=== PATIENT | female | born 1935 | race Caucasian/White ===

== ENCOUNTER 2016-07-28 12:48 | Inpatient (IN) | payer MEDICARE, OTHER ==
[~2016-07-28] VITALS: Ht 152.4 cm; Wt 65.0 kg
[~2016-07-28 12:48] MED LIST: ALBU18HF INHALATION; ALBU2.5V3 NEB; BECL8.7A INH; DOXY100T20 PO; HYDR-3498 PO; LISI10TA2 PO; PRED20TA PO
[2016-07-28] MEDS ORDERED: morphine 4 MG/ML VIAL IV STA (12:54)
[2016-07-28] MEDS ORDERED: ONDANSETRON 4 MG INJ IV STA (12:54)
[2016-07-28 13:24] LABS: ADD SCAN DIFF NO
[2016-07-28 13:26] LABS: ABNORMAL IP MESSAGE 1; BASOPHILS % 0.3 % (0.0-2.0); EOSINOPHILS # 0.1 10^3/ul (0.0-0.5); EOSINOPHILS % 0.7 % (0.0-7.0); HEMATOCRIT 37.9 % (37.0-47.0); HEMOGLOBIN 11.8 g/dl (12.0-16.0); LYMPHOCYTES # 5.7 10^3/ul (0.8-2.9); LYMPHOCYTES % 56.4 % (15.0-51.0); MEAN CORPUSCULAR HEMOGLOBIN 27.8 pg (29.0-33.0); MEAN CORPUSCULAR HGB CONC 31.1 g/dl (32.0-37.0); MEAN CORPUSCULAR VOLUME 89.4 fl (82.0-101.0); MEAN PLATELET VOLUME 10.6 fl (7.4-10.4); MONOCYTE # 0.7 10^3/ul (0.3-0.9); MONOCYTES % 6.8 % (0.0-11.0); NEUTROPHIL # 3.6 10^3/ul (1.6-7.5); NEUTROPHILS % 35.4 % (39.0-77.0); PLATELET COUNT 197 10^3/UL (140-415); RED BLOOD COUNT 4.24 10^6/ul (4.20-5.40); RED CELL DISTRIBUTION WIDTH 12.2 % (11.5-14.5); WHITE BLOOD COUNT 10.2 10^3/ul (4.8-10.8)
[2016-07-28 13:41] LABS: INR 0.94; PROTIME 12.6 Sec (12.2-14.2)
[2016-07-28 13:42] LABS: PARTIAL THROMBOPLASTIN TIME 27.2 Sec (25.0-35.0)
[2016-07-28 13:43] LABS: ANION GAP 8 (8-16); BLOOD UREA NITROGEN 14 mg/dl (7-20); CARBON DIOXIDE 26 mmol/L (21-31); CHLORIDE 107 mmol/L (97-110); CREATININE 0.62 mg/dl (0.44-1.00); GLUCOSE 98 mg/dl (70-220); SODIUM 137 mmol/L (135-144)
[2016-07-28 13:55] LABS: TROPONIN-I < 0.012 ng/ml (0.00-0.12)
--- NOTE | 2016-07-28 14:01 | RADRPT ---
PROCEDURE: XR Left Hip. CLINICAL INDICATION: Trauma. Left hip pain. TECHNIQUE: Two views. Frontal and lateral. COMPARISON: No prior studies are available for comparison. FINDINGS: There is an acute comminuted intertrochanteric fracture of the left hip with angulation apex lateral . There is no other fracture and there is no dislocation. The soft tissues are normal. Articular surfaces are intact. There is no lytic or blastic lesion. There is no radiopaque foreign body. IMPRESSION: 1. Acute comminuted intertrochanteric fracture of the left hip with angulation apex lateral. RPTAT: QQ .Braulio Carrillo MD, MD Date Time Electronically viewed and signed by .Braulio Carrillo MD, MD on 07/28/2016 14:00 .R/
[2016-07-28] MEDS ORDERED: DONE5TAB46 PO (14:28)
[2016-07-28] MEDS ORDERED: CHOL100062 PO (14:29)
[2016-07-28] MEDS ORDERED: CALC500T91 PO (14:29)
--- NOTE | 2016-07-28 14:47 | RADRPT ---
PROCEDURE: XR Chest. CLINICAL INDICATION: Preoperative. Chest pain. TECHNIQUE: Single frontal view. COMPARISON: 09/23/2015. FINDINGS: The lungs are clear. The heart size is normal. There is calcification in the aorta consistent with atherosclerosis. There is no pleural effusion. There is no pneumothorax. IMPRESSION: 1. Clear lungs. 2. Atherosclerosis. RPTAT: QQ .Braulio Carrillo MD, MD Date Time Electronically viewed and signed by .Braulio Carrillo MD, on 07/28/2016 14:46 .R/
[2016-07-28] MEDS ORDERED: ONDANSETRON 4 MG INJ IV PRN (15:00)
[2016-07-28] MEDS ORDERED: ACETAMINOPHEN 325 MG TAB PO PRN ×2 (15:00→17:30)
[2016-07-28] MEDS: SOD CHLORIDE 0.9% 1,000 ML IV SCH (15:08)
--- NOTE | 2016-07-28 15:45 | ERA ---
ER Documentation Chief Complaint Date/Time DATE: 07/28/16 TIME: 15:44 Chief Complaint GROUND LEVEL FALL WITH LEFT HIP PAIN POSITIVE DEFORMITY NOTED. SHORTENING HPI This is an 81-year-old female presents to the emergency room for evaluation of left-sided hip pain after a ground-level fall. This patient tripped today and fell at home. She denies any head injury loss of consciousness. She states that she was unable to ambulate and is having pain in the left hip which is worse with any movement. She denies any numbness or tingling in the foot and came to the ER by ambulance for evaluation of her symptoms ROS All systems reviewed and are negative except as per history of present illness. Medications Home Meds Active Scripts Beclomethasone Dip* (Qvar 40*) 7.3 Gm Inha, 2 PUFF INH BID, #1 INHALER Prov:JAISON STEWARD 09/23/15 Reported Medications Cholecalciferol* (Vitamin D3*) 1,000 Unit Tablet, 1000 UNIT PO DAILY, TAB 07/28/16 Calcium Carbonate ([id number]) 500 Mg Tablet, 500 MG PO BID, TAB 07/28/16 Donepezil* (Aricept*) 5 Mg Tablet, 5 MG PO DAILY, TAB 07/28/16 Lisinopril* (Lisinopril*) 10 Mg Tablet, 10 MG PO DAILY, #30 TAB 09/19/15 Albuterol Sulfate* (Albuterol Sulfate* Neb) 0.083%-3 Ml Neb, 2.5 MG NEB Q4H Y for WHEEZING AND SOB, #30 VIAL 09/19/15 Discontinued Scripts Hydrocodone Bit-Acetaminophen* ([place]*) 5-325 Mg Tab, 1 TAB PO Q6 Y for PAIN, # 20 TAB Prov:JAISON STEWARD 09/23/15 Doxycycline Hyclate* (Doxycycline Hyclate*) 100 Mg Tablet.dr, 100 MG PO BID for 14 Days, TAB Prov:FIDEL MARQUEZ DO 09/19/15 Prednisone* (Prednisone*) 20 Mg Tab, 40 MG PO DAILY for 3 Days, TAB Prov:FIDEL MARQUEZ DO 09/19/15 Albuterol Sulfate* (Ventolin HFA*) 18 Gm Hfa.aer.ad, 2 PUFF INHALATION Q4H, #1 INHALER Prov:FIDEL MARQUEZ DO 09/19/15 Albuterol Sulfate* (Albuterol Sulfate* Neb) 0.083%-3 Ml Neb, 2.5 MG NEB Q4H, # 30 VIAL Prov:FIDEL MARQUEZ DO 09/19/15 Allergies Allergies: Coded Allergies: No Known Drug Allergies (Verified Allergy, Mild, 09/23/15) PMhx/Soc History of Surgery: No Anesthesia Reaction: No Hx Neurological Disorder: No Hx Respiratory Disorders: Yes (c.bronchitis , ASTHMA ) Hx Cardiac Disorders: Yes (htn) Hx Psychiatric Problems: No Hx Miscellaneous Medical Probl: No Hx Alcohol Use: No Hx Substance Use: No Hx Tobacco Use: No Smoking Status: Never smoker Physical Exam Vitals Vital Signs Date Time Temp Pulse Resp B/P Pulse Ox O2 Delivery O2 Flow Rate FiO2 07/28/16 12:53 98.0 86 20 142/86 98 Physical Exam INITIAL VITAL SIGNS: Reviewed by me GENERAL: The patient is frail-appearing elderly female, mild distress HEENT: Pupils equal, round, and reactive to light. EOMI. There is no scleral icterus. NECK: C-spine is soft and supple, there is no meningismus. There is no cervical lymphadenopathy. LUNGS: Clear to auscultation bilaterally. There are no rales, wheezes or rhonchi. HEART: Regular rate and rhythm, no murmurs, clicks, rubs or gallops. ABDOMEN: Soft, non-tender, non-distended. There are bowel sounds in all four quadrants. No rebound or guarding. EXTREMITIES: Left lower extremity external rotation, extreme tenderness to palpation of the anterior superior iliac spine or with any movement of the left hip joint, there is no peripheral cyanosis or edema. No focal swelling or erythema. NEUROLOGICAL: The patient moves all four extremities with 5/5 strength. Cranial nerves II - XII are intact. Normal gait. Alert and oriented SKIN: There is no apparent rash or petechiae. HEME/LYMPHATIC: There is no evidence of excessive bruising or lymphedema. PSYCHIATRIC: The patient does not appear anxious or depressed. Result Diagram: 07/28/16 1320 07/28/16 1320 Results 24 hrs Laboratory Tests Test 07/28/16 13:20 White Blood Count 10.210^3/ul Red Blood Count 4.2410^6/ul Hemoglobin 11.8g/dl Hematocrit 37.9% Mean Corpuscular Volume 89.4fl Mean Corpuscular Hemoglobin 27.8pg Mean Corpuscular Hemoglobin Concent 31.1g/dl Red Cell Distribution Width 12.2% Platelet Count 45058^3/UL Mean Platelet Volume 10.6fl Neutrophils % 35.4% Lymphocytes % 56.4% Monocytes % 6.8% Eosinophils % 0.7% Basophils % 0.3% Nucleated Red Blood Cells % 0.0/100WBC Neutrophils # 3.610^3/ul Lymphocytes # 5.710^3/ul Monocytes # 0.710^3/ul Eosinophils # 0.110^3/ul Basophils # 0.010^3/ul Nucleated Red Blood Cells # 0.010^3/ul Prothrombin Time 12.6Sec Prothrombin Time Ratio 1.0 INR International Normalized Ratio 0.94 Activated Partial Thromboplast Time 27.2Sec Sodium Level 137mmol/L Potassium Level 4.0mmol/L Chloride Level 107mmol/L Carbon Dioxide Level 26mmol/L Anion Gap 8 Blood Urea Nitrogen 14mg/dl Creatinine 0.62mg/dl Glucose Level 98mg/dl Calcium Level 9.0mg/dl Troponin I < 0.012ng/ml Current Medications Medications (Trade) Dose Ordered Sig/Jayjay Route PRN Reason Start Time Stop Time Status Last Admin Dose Admin Morphine Sulfate (morphine) 4 mg ONCE STAT IV 07/28/16 12:54 07/28/16 12:56 DC 07/28/16 13:10 Ondansetron HCl 4 mg 4 mg ONCE STAT IV 07/28/16 12:54 07/28/16 12:56 DC 07/28/16 13:10 Sodium Chloride (NS) 1,000 ml @ 80 mls/hr [id number] IV 07/28/16 14:59 07/29/16 03:28 07/28/16 15:08 Ondansetron HCl (Zofran Inj) 4 mg BRIDGE ORDER PRN IV NAUSEA AND/OR VOMITING 07/28/16 15:00 07/29/16 14:59 Acetaminophen (Tylenol Tab) 650 mg ER BRIDGE PRN PO MILD PAIN/FEVER 07/28/16 15:00 07/29/16 14:59 Procedures/MDM Chest X-ray 1V Interpreted by me: Soft Tissue: No acute abnormalities Bones: No acute abnormalities Mediastinum/Cardiac Silhouette/Lungs: [No acute abnormalities] EKG: Rate/Rhythm: [Normal Sinus Rhythm] QRS, ST, T-waves: [No changes consistent w/ acute ischemia] Impression: [No evidence of ischemia or arrhythmia] X-ray Hip 2V Interpreted by me: Bones: Intertrochanteric fracture left Joints: [No dislocation] Foreign body: [None] This 81-year-old female presents to the emergency room for evaluation of left hip pain after ground-level fall. She did have external rotation of her left lower extremity and painful range of motion. The patient was given morphine in the ER with resolution of her pain. X-ray did confirm my suspicion of acute hip fracture. The patient will be admitted at this time. I contacted her orthopedic surgeon on-call, Dr. Kelley who agrees to evaluate this patient. [facility] under the care of her panel physician, Dr. Bean. For acute left intertrochanteric fracture Departure Diagnosis: Primary Impression: Fracture, intertrochanteric, left femur Additional Impression: Fall from ground level Condition: Stable PRINCESS COPE DO July 28, 2016 15:45
[2016-07-28] MEDS ORDERED: ALBUTEROL 0.083% (NEB) 2.5 MG/3 ML AMP NEB PRN (16:00)
--- NOTE | 2016-07-28 16:12 | HP ---
Date/Time of Note Date/Time of Note DATE: 07/28/16 TIME: 16:03 Assessment/Plan VTE Prophylaxis VTE Prophylaxis Intervention: SCD's Lines/Catheters IV [facility] Saline Lock Assessment/Plan Chief Complaint/Hosp Course Impression and plan 1. Left hip fracture. Patient did have a mechanical fall after tripping on step. No reports of syncope or loss of consciousness. imaging of left hip that did show acute comminuted intertrochanteric fracture with angulation apex lateral. Surgical consult to follow. Provide with analgesics for now. We will follow-up on echocardiogram preop 2. Essential hypertension. Continue antihypertensives and adjust needed 3. Alzheimer's disease. Patient to be resumed on her Alzheimer's medication 4. History of COPD. No active bronchospasm. Will provide with bronchodilators as needed Admission process 40 minutes Of note patient did report that she will not consent to any surgical intervention until her arrives in disease July 29, 2016). We will follow -up with patient decision. Discussed plan of care with Dr. Bean Problems: HPI/ROS Admit Date/Time Admit Date/Time Hx of Present Illness This is an 81-year-old female with history of Alzheimer's disease, hypertension , COPD, who came to [facility] due to mechanical fall resulting in a left hip fracture. According to the patient she was inside of her house when she had tripped on 1 of the steps inside and subsequently fell on her left side. She denied any head trauma or any loss of consciousness prior to this fall. No other associated symptoms or chest pain or shortness of breath. She was unable to ambulate and as such is brought to [facility] for further evaluation. Upon examination she did have a hip x-ray on the left side that did show an acute comminuted intertrochanteric fracture of the left hip with angulation apex lateral. Her chest x-ray of note was noted to have clear lungs but atherosclerosis was seen. Vital signs otherwise stable and nothing remarkable seen on BMP. She was slightly noted to be anemic hypochromic microcytic. She remains alert and oriented. Reports only minimal pain on left hip. We will evaluate her for the aformentiond issues ROS 12 point review of systems obtained and entirely negative except that mentioned in the history of present illness PMH/Family/Social Past Medical History Medical/surgical history Alzheimer's disease, hypertension, COPD Family History Significant Family History: no pertinent family hx Social History Alcohol Use: none Smoking Status: Never smoker Drug Use: none Exam/Review of Systems Vital Signs Vitals Vital Signs Date Time Temp Pulse Resp B/P Pulse Ox O2 Delivery O2 Flow Rate FiO2 07/28/16 12:53 98.0 86 20 142/86 98 Exam Constitutional: alert, oriented Psych: no complaints Neck: supple, No jvd Respiratory: clear to auscultation, normal air movement Cardiovascular: regular rate and rhythm Gastrointestinal: non-tender, soft Musculoskeletal: other (Noted with left hip fracture. No obvious ecchymosis or swelling noted) Neurological: nl speech, other (Slightly forgetful) Labs Result Diagram: 07/28/16 1320 07/28/16 1320 Medications Medications Current Medications Sodium Chloride (NS) 1,000 ml @ 80 mls/hr [id number] IV Last administered on 07/28t 15:08; Admin Dose 80 MLS/HR; Start 07/28/16 at 14:59; Stop 07/29/16 at 03: 28 Albuterol (Proventil 0.083% (Neb)) 2.5 mg Q4H PRN NEB WHEEZING AND SOB; Start 07/28/16 at 16:00; Status UNV Calcium Carbonate (Oyster Shell Calcium) 0.5 gm BID PO ; Start 07/28/16 at 21:00 ; Status UNV Cholecalciferol (Vitamin D) 1,000 unit DAILY PO ; Start 07/29/16 at 09:00; Status UNV Donepezil HCl (Aricept) 5 mg DAILY PO ; Start 07/29/16 at 09:00; Status UNV Lisinopril (Zestril) 10 mg DAILY PO ; Start 07/29/16 at 09:00; Status UNV Miscellaneous Information 2 puff BID INH ; Start 07/28/16 at 21:00; Status UNV FLAVIO FAN July 28, 2016 16:12
[2016-07-28 16:45] VITALS: BP 142/65; PULSE 86; RESP 16
[2016-07-28] MEDS: morphine 2 MG INJ IV PRN ×2 (17:29→21:33)
[2016-07-28] MEDS ORDERED: morphine 2 MG INJ IV PRN (17:30)
[2016-07-28 19:25] LABS: CREATINE KINASE 65 IU/L (23-200)
[2016-07-28 19:35] LABS: CK-MB 0.63 ng/ml (0.0-2.4)
[2016-07-28 19:48] LABS: TROPONIN-I < 0.012 ng/ml (0.00-0.12)
[2016-07-28 20:44] VITALS: BP 143/66; RESP 19
[2016-07-28] MEDS: CALCIUM CARBONATE 1.25 GM TAB PO SCH (20:49)
[2016-07-28] MEDS: MOMETASONE 0.24 GM INHALER INH SCH (20:50)
[2016-07-28] MEDS: HEPARIN 5,000 UNIT/0.5 ML VIAL SC SCH (20:59)
[2016-07-28 22:19] VITALS: PULSE 71; RESP 18
[2016-07-29] MEDS: morphine 2 MG INJ IV PRN ×5 (01:27→20:44)
[2016-07-29 01:29] LABS: CREATINE KINASE 66 IU/L (23-200)
[2016-07-29 01:42] LABS: CK-MB 0.48 ng/ml (0.0-2.4)
[2016-07-29 01:46] LABS: TROPONIN-I < 0.012 ng/ml (0.00-0.12)
[2016-07-29] MEDS: SOD CHLORIDE 0.9% 1,000 ML IV SCH ×4 (03:09→22:23)
[2016-07-29 07:00] VITALS: BP 144/63; RESP 20
[2016-07-29] MEDS: HYDROCODONE/APAP (5/325) TAB PO PRN ×2 (08:16→14:29)
[2016-07-29] MEDS: DONEPEZIL 5 MG TAB PO SCH ×2 (09:00→11:33)
[2016-07-29] MEDS: LISINOPRIL 10 MG TAB PO SCH ×2 (09:00→11:34)
[2016-07-29] MEDS: CALCIUM CARBONATE 1.25 GM TAB PO SCH ×3 (09:00→20:51)
[2016-07-29] MEDS: MOMETASONE 0.24 GM INHALER INH SCH ×2 (09:48→21:00)
[2016-07-29] MEDS: HEPARIN 5,000 UNIT/0.5 ML VIAL SC SCH ×2 (11:34→20:58)
[2016-07-29] MEDS: CHOLECALCIFEROL 1,000 UNIT TAB PO SCH (11:35)
--- NOTE | 2016-07-29 13:09 | RADRPT ---
Echocardiogram Report Patient Name: MERI ELAM Gender: Female Date: 1935 Study Date: 29-Jul-2016 Library Science Instructor: Jer Latham [facility] Location: [facility] Ref. Physician: FLAVIO FAN Quality: Technically Difficult Study Procedures: Transthoracic echocardiogram with complete 2D, M-Mode, and doppler examination. Indications: Evaluate Left Ventricular function. Pre-op. 2D/M Mode Doppler Measurement Value Normal Ranges Measurement Value Normal Ranges LVIDd 2D 4.2 3.5 - 5.6 cm AV Peak Zeke 1.7 m/sec LVIDs 2D 2.8 2.1 - 4.1 cm AV Peak PG 12.0 mmHg FS 2D 34.6 % AI Peak PG 45.0 mmHg LVPWd 2D 0.9 0.6 - 1.1 cm AI Peak Zeke 3.4 m/sec IVSd 2D 1.0 0.6 - 1.1 cm AI PHT 426.0 msec IVS/LVPW 2D 1.1 LVOT Peak Zeke 1.2 m/sec AoR Diam 2D 3.0 2.0 - 3.7 cm LVOT Peak PG 5.0 mmHg LA/Ao 2D 1 0 - 1 MV E Peak Zeke 0.5 m/sec EDV 2D 75.2 cm3 MV A Peak Zeke 0.8 m/sec ESV 2D 21.0 cm3 MV E/A 0.6 LA Dimen 2D 3.7 2.3 - 4.0 cm MV Decel Time 190 msec MV E/A 0.6 TR Peak Zeke 3.1 m/sec TR Peak PG 38.0 mmHg RVSP 41.0 mmHg Findings Left Ventricle: Hyperdynamic left ventricular systolic function. Normal left ventricular cavity size. Normal left ventricular wall thickness. Ejection fraction is visually estimated at 70 %. Tissue Doppler/Mitral Doppler indices are consistent with impaired relaxation (Stage I diastolic dysfunction). Right Ventricle: Normal right ventricular size. Normal right ventricular systolic function. Left Atrium: The left atrium is normal in size. Right Atrium: The right atrium is normal in size. Mitral Valve: Normal appearance and function of the mitral valve with trace physiologic regurgitation. Aortic Valve: No hemodynamically significant aortic stenosis by doppler. Aortic cusps appear mildly calcified. Trace aortic valve regurgitation. Tricuspid Valve: Tricuspid valve not well visualized. Estimated peak PA systolic pressure 41 mmHg. There is trace tricuspid regurgitation. Pulmonic Valve: Normal pulmonic valve appearance. Pericardium: Normal pericardium with no significant pericardial effusion. Aorta: Normal aortic root. IVC: Normal size and normal respiratory collapse consistent with normal right atrial pressure. Conclusions 1.Hyperdynamic left ventricular systolic function. Normal left ventricular cavity size. Normal left ventricular wall thickness. Ejection fraction is visually estimated at 70 %. Tissue Doppler/Mitral Doppler indices are consistent with impaired relaxation (Stage I diastolic dysfunction). 2.Normal right ventricular size. Normal right ventricular systolic function. 3.The left atrium is normal in size. 4.The right atrium is normal in size. 5.Estimated peak PA systolic pressure 41 mmHg. There is trace tricuspid regurgitation. 6.No significant valvular stenosis or regurgitation seen. 7.Normal pericardium with no significant pericardial effusion. Electronically Signed By: Aaron Blount 29-Jul-2016 13:07:36 -0700 Patient Name: MERI ELAM Study Date: 29-Jul-2016 [id number]
--- NOTE | 2016-07-29 15:19 | PN ---
Date/Time of Note Date/Time of Note DATE: 07/29/16 TIME: 15:17 Assessment/Plan VTE Prophylaxis VTE Prophylaxis Intervention: heparin Lines/Catheters IV Catheter Type (from Nrs): Peripheral IV Urinary Cath still in place: Yes Reason Cath still needed: other (indicate) (monitor I&O) Assessment/Plan Chief Complaint/Hosp Course Impression and plan 1. Left hip fracture. Patient did have a mechanical fall after tripping on step. No reports of syncope or loss of consciousness. imaging of left hip that did show acute comminuted intertrochanteric fracture with angulation apex lateral. Continue with analgesics. Awaiting surgical consultation input 2. Essential hypertension. Continue antihypertensives and adjust needed 3. Alzheimer's disease. Patient to be resumed on her Alzheimer's medication 4. History of COPD. No active bronchospasm. Will provide with bronchodilators as needed Disposition and plan: Continue with analgesics. Patient is mild to moderate risk for surgical intervention however the benefits of orthopedic surgery make it reasonable to proceed. Tentative plan for surgical intervention per orthopedic consult. Will follow up. Discussed plan of care with Dr. Bean Problems: Subjective 24 Hr Interval Summary Free Text/Dictation No apparent distress at this time. Comfortable at Exam/Review of Systems Vital Signs Vitals Vital Signs Date Time Temp Pulse Resp B/P Pulse Ox O2 Delivery O2 Flow Rate FiO2 07/29/16 08:00 Nasal Cannula 2.0 07/29/16 07:00 98.3 81 20 144/63 91 Intake and Output 07/28/16 07/28/16 07/29/16 15:00 23:00 07:00 Intake Total 160 ml 1080 ml Output Total 200 ml 250 ml Balance -40 ml 830 ml Exam Constitutional: alert, oriented Neck: No jvd Respiratory: clear to auscultation, normal air movement Cardiovascular: regular rate and rhythm Gastrointestinal: non-tender, soft Musculoskeletal: other (Noted with left hip fracture) Neurological: nl mental status, nl speech Skin: nl turgor Results Result Diagram: 07/28/16 1320 07/28/16 1320 Results 24 hrs Laboratory Tests Test 07/28/16 19:00 07/29/16 01:00 Creatine Kinase 65 66 Creatine Kinase Index 1.0 0.7 Creatinine Kinase MB (Mass) 0.63 0.48 Troponin I < 0.012 < 0.012 Medications Medications Current Medications Calcium Carbonate (Oyster Shell Calcium) 1.25 gm BID PO Last administered on 11:33; Admin Dose 1.25 GM; Start 07/28/16 at 21:00 Cholecalciferol (Vitamin D) 1,000 unit DAILY PO Last administered on 07/29/16 11:35; Admin Dose 1,000 UNIT; Start 07/29/16 at 09:00 Donepezil HCl (Aricept) 5 mg DAILY PO Last administered on 07/29/16 11:33; Admin Dose 5 MG; Start 07/29/16 at 09:00 Lisinopril (Zestril) 10 mg DAILY PO Last administered on 07/29/16 11:34; Admin Dose 10 MG; Start 07/29/16 at 09:00 Mometasone Furoate (Asmanex) 1 puff BID INH Last administered on 07/29/16 09: 48; Admin Dose 1 PUFF; Start 07/28/16 at 21:00 Heparin Sodium (Porcine) (Heparin (5000 Units/0.5 ml)) 5,000 unit BID SC Last administered on 07/29/16 11:34; Admin Dose 5,000 UNIT; Start 07/28/16 at 21:00 Acetaminophen/ Hydrocodone Bitart ([place] (5/325)) 1 tab Q6H PRN PO MILD PAIN LEVEL 1-3 Last administered on 07/29/16 14:29; Admin Dose 1 TAB; Start at 17:30 Acetaminophen (Tylenol Tab) 650 mg Q6H PRN PO PAIN AND OR ELEVATED TEMP; Start 07/28/16 at 17:30 Morphine Sulfate 2 mg 2 mg Q4H PRN IV PAIN Last administered on 07/29/16 09:51 ; Admin Dose 2 MG; Start 07/28/16 at 17:00 Sodium Chloride (NS) 1,000 ml @ 100 mls/hr Q10H IV Last administered on 14:26; Admin Dose 100 MLS/HR; Start 07/29/16 at 06:30; Stop 07/30/16 at 06: 30 FLAVIO FAN July 29, 2016 15:19
--- NOTE | 2016-07-29 16:03 | CONS ---
DATE OF ADMISSION: 07/28/2016 DATE OF CONSULTATION: 07/29/2016 TYPE OF CONSULTATION: Orthopedic Surgical HISTORY OF PRESENT ILLNESS: The patient is an 81-year-old female who was admitted on 07/28/2016, wh en she came to the emergency room complaining of painful swelling and limit of motion involving her left hip. She obviously had a trip and fall sustaining a ground-level fall on the day of her admiss ion. Denies any head injuries or chest pain or unconsciousness. She is known to have hypertension, COPD and dementia. PHYSICAL EXAMINATION: My examination revealed an 81-year-old female who was not in any acute distre ss. There was obvious swelling and tenderness and painful limit of motion involving her left hip. There was shortening and abnormal external rotation of the left lower extremity. There were no sign s of acute neurovascular compromise involving the left lower extremity. DIAGNOSTIC STUDIES: X-rays of the left hip revealed a rather comminuted intertrochanteric fracture which seems to be very unstable with fractured greater trochanter and lesser trochanter. TREATMENT PLAN: To carry out open reduction and internal fixation utilizing [facility] system and as soon as she can be medically cleared for surgery. Dictated By: BURKE BERMAN/MARLENE Conf#: [id number] DID#: [id number]
[2016-07-29 19:00] VITALS: BP 135/67; RESP 18
[2016-07-30] MEDS: HYDROCODONE/APAP (5/325) TAB PO PRN ×2 (00:02→07:23)
[2016-07-30] MEDS: morphine 2 MG INJ IV PRN ×5 (05:23→22:05)
[2016-07-30 07:32] VITALS: BP 159/71; RESP 19
[2016-07-30] MEDS: DONEPEZIL 5 MG TAB PO SCH (08:25)
[2016-07-30] MEDS: LISINOPRIL 10 MG TAB PO SCH (08:26)
[2016-07-30] MEDS: MOMETASONE 0.24 GM INHALER INH SCH ×2 (08:26→20:29)
[2016-07-30] MEDS: HEPARIN 5,000 UNIT/0.5 ML VIAL SC SCH (08:29)
[2016-07-30] MEDS: CHOLECALCIFEROL 1,000 UNIT TAB PO SCH (09:09)
[2016-07-30] MEDS: CALCIUM CARBONATE 1.25 GM TAB PO SCH ×2 (09:09→20:29)
--- NOTE | 2016-07-30 14:44 | PN ---
Date/Time of Note Date/Time of Note DATE: 07/30/16 TIME: 14:41 Assessment/Plan VTE Prophylaxis VTE Prophylaxis Intervention: heparin Lines/Catheters IV Catheter Type (from Nrs): Peripheral IV Urinary Cath still in place: Yes Reason Cath still needed: other (indicate) (monitor I&O) Assessment/Plan Chief Complaint/Hosp Course Impression and plan 1. Left hip fracture. Patient did have a mechanical fall after tripping on step. No reports of syncope or loss of consciousness. imaging of left hip that did show acute comminuted intertrochanteric fracture with angulation apex lateral. Continue with analgesics for now. 2. Essential hypertension. Continue antihypertensives and adjust needed. Stable 3. Alzheimer's disease. Continue patient on her Alzheimer's medication 4. History of COPD. No active bronchospasm. Will provide with bronchodilators as needed. Stable Disposition and plan: Continue with analgesics. Patient is mild to moderate risk for surgical intervention however the benefits of orthopedic surgery make it reasonable to proceed. Await for surgeon input for surgical intervention. We will follow-up Discussed plan of care with Dr. Bean Problems: Subjective 24 Hr Interval Summary Free Text/Dictation Still reports having some left hip pain. Family at bedside. No other specific complaints Exam/Review of Systems Vital Signs Vitals Vital Signs Date Time Temp Pulse Resp B/P Pulse Ox O2 Delivery O2 Flow Rate FiO2 07/30/16 08:00 Nasal Cannula 2.0 07/30/16 07:32 98.3 79 19 159/71 93 Intake and Output 07/29/16 07/29/16 07/30/16 15:00 23:00 07:00 Intake Total 1000 ml 1730 ml 1000 ml Output Total 350 ml 800 ml Balance 1000 ml 1380 ml 200 ml Exam Constitutional: alert, oriented, no s/s of distress Neck: No jvd Respiratory: normal air movement unchanged Cardiovascular: regular rate and rhythm Gastrointestinal: non-tender, soft Musculoskeletal: other (Noted with left hip fracture) Neurological: nl mental status, nl speech Skin: nl turgor Results Result Diagram: 07/28/16 1320 07/28/16 1320 Medications Medications Current Medications Calcium Carbonate (Oyster Shell Calcium) 1.25 gm BID PO Last administered on t 09:09; Admin Dose 1.25 GM; Start 07/28/16 at 21:00 Cholecalciferol (Vitamin D) 1,000 unit DAILY PO Last administered on 07/30/16 09:09; Admin Dose 1,000 UNIT; Start 07/29/16 at 09:00 Donepezil HCl (Aricept) 5 mg DAILY PO Last administered on 07/30/16 08:25; Admin Dose 5 MG; Start 07/29/16 at 09:00 Lisinopril (Zestril) 10 mg DAILY PO Last administered on 07/30/16 08:26; Admin Dose 10 MG; Start 07/29/16 at 09:00 Mometasone Furoate (Asmanex) 1 puff BID INH Last administered on 07/30/16 08: 26; Admin Dose 1 PUFF; Start 07/28/16 at 21:00 Heparin Sodium (Porcine) (Heparin (5000 Units/0.5 ml)) 5,000 unit BID SC Last administered on 07/30/16 08:29; Admin Dose 5,000 UNIT; Start 07/28/16 at 21:00 Acetaminophen/ Hydrocodone Bitart ([place] (5/325)) 1 tab Q6H PRN PO MILD PAIN LEVEL 1-3 Last administered on 07/30/16 07:23; Admin Dose 1 TAB; Start at 17:30 Acetaminophen (Tylenol Tab) 650 mg Q6H PRN PO PAIN AND OR ELEVATED TEMP Last administered on 07/30/16 08:23; Admin Dose 650 MG; Start 07/28/16 at 17:30 Morphine Sulfate (morphine) 2 mg Q2H PRN IV PAIN Last administered on 12:24; Admin Dose 2 MG; Start 07/30/16 at 09:00 FLAVIO FAN July 30, 2016 14:44
[2016-07-30 19:00] VITALS: BP 160/70; RESP 18
[2016-07-31] VITALS (20 sets, daily range): BP systolic 68–142; BP diastolic 40–63; PULSE 80–106; RESP 16–20; Ht 152.4 cm; Wt 65.0 kg
[2016-07-31] MEDS: morphine 2 MG INJ IV PRN ×3 (04:42→13:02)
[2016-07-31] MEDS ORDERED: ACETAMINOPHEN 1000 MG/100 ML IVPB ONE (07:00)
[2016-07-31] MEDS: CHOLECALCIFEROL 1,000 UNIT TAB PO SCH (09:00)
[2016-07-31] MEDS: DONEPEZIL 5 MG TAB PO SCH (09:00)
[2016-07-31] MEDS: CALCIUM CARBONATE 1.25 GM TAB PO SCH ×2 (09:00→22:47)
[2016-07-31] MEDS: LISINOPRIL 10 MG TAB PO SCH (09:00)
[2016-07-31] MEDS: MOMETASONE 0.24 GM INHALER INH SCH ×2 (10:08→22:47)
[2016-07-31] MEDS: LACTATED RINGER'S 1,000 ML IV SCH (12:19)
--- NOTE | 2016-07-31 14:09 | PN ---
Date/Time of Note Date/Time of Note DATE: 07/31/16 TIME: 14:07 Assessment/Plan VTE Prophylaxis VTE Prophylaxis Intervention: heparin Lines/Catheters IV Catheter Type (from Nrs): Saline Lock Urinary Cath still in place: Yes Reason Cath still needed: other (indicate) (monitor I&O) Assessment/Plan Chief Complaint/Hosp Course Impression and plan 1. Left hip fracture. Patient did have a mechanical fall after tripping on step. No reports of syncope or loss of consciousness. imaging of left hip that did show acute comminuted intertrochanteric fracture with angulation apex lateral. Continue with analgesics for now. plan for surgical intervention today 2. Essential hypertension. Continue antihypertensives and adjust needed. stable 3. Alzheimer's disease. Continue patient on her Alzheimer's medication 4. History of COPD. No active bronchospasm. Will provide with bronchodilators as needed. stable Disposition and plan: Continue with analgesics. Plan for surgery today Discussed plan of care with Dr. Bean Problems: Subjective 24 Hr Interval Summary Free Text/Dictation Still reports having left hip pain. Exam/Review of Systems Vital Signs Vitals Vital Signs Date Time Temp Pulse Resp B/P Pulse Ox O2 Delivery O2 Flow Rate FiO2 07/31/16 07:00 98.5 86 20 137/61 98 07/31/16 04:40 Nasal Cannula 2.0 07/30/16 21:58 21 Intake and Output 07/30/16 07/30/16 07/31/16 15:00 23:00 07:00 Intake Total 500 ml 300 ml Output Total 1200 ml 1000 ml Balance -700 ml -700 ml Exam Constitutional: no s/s of distress Neck: No jvd Respiratory: normal air movement unchanged Cardiovascular: regular rate and rhythm Gastrointestinal: non-tender, soft Musculoskeletal: other (Noted with left hip fracture) Neurological: nl mental status, nl speech Skin: nl turgor Results Result Diagram: 07/28/16 1320 07/28/16 1320 Medications Medications Current Medications Calcium Carbonate (Oyster Shell Calcium) 1.25 gm BID PO Last administered on 20:29; Admin Dose 1.25 GM; Start 07/28/16 at 21:00 Cholecalciferol (Vitamin D) 1,000 unit DAILY PO Last administered on 07/30/16 09:09; Admin Dose 1,000 UNIT; Start 07/29/16 at 09:00 Donepezil HCl (Aricept) 5 mg DAILY PO Last administered on 07/30/16 08:25; Admin Dose 5 MG; Start 07/29/16 at 09:00 Lisinopril (Zestril) 10 mg DAILY PO Last administered on 07/30/16 08:26; Admin Dose 10 MG; Start 07/29/16 at 09:00 Mometasone Furoate (Asmanex) 1 puff BID INH Last administered on 07/31/16 10: 08; Admin Dose 1 PUFF; Start 07/28/16 at 21:00 Acetaminophen/ Hydrocodone Bitart ([place] (5/325)) 1 tab Q6H PRN PO MILD PAIN LEVEL 1-3 Last administered on 07/30/16 07:23; Admin Dose 1 TAB; Start at 17:30 Acetaminophen (Tylenol Tab) 650 mg Q6H PRN PO PAIN AND OR ELEVATED TEMP Last administered on 07/30/16 08:23; Admin Dose 650 MG; Start 07/28/16 at 17:30 Morphine Sulfate 2 mg 2 mg Q2H PRN IV PAIN Last administered on 07/31/16 13:02 ; Admin Dose 2 MG; Start 07/30/16 at 09:00 Lactated Ringer's (Lr) 1,000 ml @ 75 mls/hr [id number] IV Last administered on 12:19; Admin Dose 75 MLS/HR; Start 07/31/16 at 12:30 FLAVIO FAN July 31, 2016 14:09
[2016-07-31] MEDS ORDERED: POLYMYXIN/BACITRACIN 1L IRRIG ONE (14:12)
[2016-07-31] MEDS ORDERED: LIDOCAINE 2% (SDV) 5 ML INJ ONE (14:20)
[2016-07-31] MEDS ORDERED: ROCURONIUM 50 MG INJ ONE (14:20)
[2016-07-31] MEDS ORDERED: PROPOFOL 20 ML ONE (14:20)
[2016-07-31] MEDS ORDERED: FENTAnyl 50 MCG/ML VIAL ONE (14:20)
[2016-07-31] MEDS ORDERED: KETOROLAC 30 MG INJ IV ONE (14:30)
[2016-07-31] MEDS ORDERED: DIPHENHYDRAMINE 50 MG INJ IV PRN (14:30)
[2016-07-31] MEDS ORDERED: OXYCODONE/ACETAMINOPHEN (5/325) TAB PO PRN ×2 (14:30)
[2016-07-31] MEDS ORDERED: MEPERIDINE 25 MG INJ IV PRN (14:30)
[2016-07-31] MEDS ORDERED: HYDROmorphONE (0.2 MG/ML) 10ML SYG IV PRN (14:30)
[2016-07-31] MEDS ORDERED: ONDANSETRON 4 MG INJ IV PRN (14:30)
[2016-07-31] MEDS ORDERED: FENTAnyl 50 MCG/ML VIAL IV PRN (14:30)
--- NOTE | 2016-07-31 14:31 | HPN ---
Date/Time of Note Date/Time of Note DATE: 07/31/16 TIME: 14:29 Interval H&P Admission Note Pt. seen H&P reviewed: No system changes KATARINA PARRA MD July 31, 2016 14:31
[2016-07-31] MEDS ORDERED: ONDANSETRON 4 MG INJ ONE (15:16)
[2016-07-31] MEDS ORDERED: CEFAZOLIN 1 GM INJ ONE (15:16)
[2016-07-31] MEDS ORDERED: PHENYLephrine (100 MCG/ML) 5ML SYG ONE ×2 (15:16→17:01)
[2016-07-31] MEDS ORDERED: DEXAMETHASONE 4 MG/ML 1 ML INJ ONE (15:17)
[2016-07-31] MEDS ORDERED: HYDROmorphONE 2 MG/ML SYG ONE (15:40)
[2016-07-31] MEDS ORDERED: EPHEDrine SULFATE 50 MG/5 ML SYG ONE ×2 (15:46→17:08)
[2016-07-31] MEDS ORDERED: NEOSTIGMINE 3 MG/3 ML SYRINGE ONE (15:52)
[2016-07-31] MEDS ORDERED: GLYCOPYRROLATE 0.4 MG INJ ONE (15:52)
[2016-07-31] MEDS ORDERED: ESMOLOL 10 ML ONE (16:22)
[2016-07-31] MEDS ORDERED: NACL 0.9% 3 ML SYG IV SCH (17:00)
[2016-07-31] MEDS ORDERED: morphine 2 MG INJ IV PRN (17:00)
[2016-07-31] MEDS ORDERED: CEFAZOLIN 1 GM/50 ML (PMX) 50 ML IVPB SCH (17:00)
[2016-07-31] MEDS: EPHEDrine SULFATE 50 MG/5 ML SYG IV PRN ×2 (17:23→17:27)
[2016-07-31] MEDS ORDERED: PHENYLephrine (100 MCG/ML) 5ML SYG IV PRN (17:30)
--- NOTE | 2016-07-31 17:34 | OPR ---
DATE OF OPERATION: 07/31/2016 PREOPERATIVE DIAGNOSIS: Intertrochanteric fracture of the left hip, comminuted and displaced. POSTOPERATIVE DIAGNOSIS: Intertrochanteric fracture of the left hip, comminuted and displaced. PROCEDURE PERFORMED: ORIF of the intertrochanteric fracture of the left hip. ANESTHESIA: General anesthesia. SURGEON: Burke Parra MD PROCEDURE AND FINDINGS: Under general anesthesia, the patient was placed on the fracture table. Ut ilizing fracture table and under fluoroscopic monitoring, preliminary manipulative reduction of the left hip was carried out until an acceptable alignment could be achieved. After confirming acceptab le alignment, the left hip and left lower extremity were prepped and draped in the usual fashion. T hrough a small longitudinal incision over the lateral aspect of the left hip, the intertrochanteric area was approached, and through the tip of the greater trochanter, intramedullary canal was entered with the guide drill. After confirming satisfactory alignment of the guide drill, the opening was enlarged with the cannulated drill and the reamer guide was introduced into the intramedullary canal . After adjustment, measurement was made, and it was my impression that the intramedullary nail in the size of 10 x 34 cm with 125 degree angle would be the best choice. After reaming along the reamer guide up to 11.5 mm, the selected intramedullary nail was inserted. Again, after proper rotatory adjustment, guide pin for the lag screw was inserted, and the measureme nt revealed that the proper length of the lag screw should be 85 mm. After reaming along the guide pin, the selected lag screw in the size of 85 mm was inserted. At this point, after releasing the t raction, compression at the fracture site was performed using special device for compressing the fra cture site. After compression at the fracture site, lag screw was properly locked. After irrigatio n and hemostasis, closure of the incision was carried out using 0 Vicryl for muscle and fascia and 2 -0 Vicryl for subcutaneous tissues. Final skin closure was carried out with skin kira. Usual st erile pressure dressings were applied. The patient tolerated the entire procedure very well and was sent to the recovery room in excellent condition. Dictated By: BURKE PARRA MD IK/NTS Conf#: [id number] DID#: [id number]
[2016-07-31 17:51] LABS: ADD SCAN DIFF NO
[2016-07-31 17:54] LABS: BASOPHILS % 0.2 % (0.0-2.0); EOSINOPHILS % 0.1 % (0.0-7.0); HEMATOCRIT 28.5 % (37.0-47.0); HEMOGLOBIN 9.2 g/dl (12.0-16.0); LYMPHOCYTES # 1.5 10^3/ul (0.8-2.9); LYMPHOCYTES % 8.7 % (15.0-51.0); MEAN CORPUSCULAR HEMOGLOBIN 28.2 pg (29.0-33.0); MEAN CORPUSCULAR HGB CONC 32.3 g/dl (32.0-37.0); MEAN CORPUSCULAR VOLUME 87.4 fl (82.0-101.0); MEAN PLATELET VOLUME 10.1 fl (7.4-10.4); MONOCYTE # 1.1 10^3/ul (0.3-0.9); MONOCYTES % 6.3 % (0.0-11.0); NEUTROPHIL # 14.6 10^3/ul (1.6-7.5); NEUTROPHILS % 84.1 % (39.0-77.0); PLATELET COUNT 172 10^3/UL (140-415); RED BLOOD COUNT 3.26 10^6/ul (4.20-5.40); RED CELL DISTRIBUTION WIDTH 11.8 % (11.5-14.5); WHITE BLOOD COUNT 17.3 10^3/ul (4.8-10.8)
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
[2016-07-31 18:11] LABS: CALCIUM 7.9 mg/dl (8.4-10.2); CREATININE 0.63 mg/dl (0.44-1.00); POTASSIUM 4.2 mmol/L (3.5-5.1)
[2016-07-31] MEDS: SOD CHLORIDE 0.9% 1,000 ML IV SCH (18:26)
--- NOTE | 2016-07-31 20:06 | RADRPT ---
PROCEDURE: Intraoperative imaging of the left hip with fluoroscopy. CLINICAL INDICATION: Left hip pain. Intraoperative. TECHNIQUE: 29 images of the left hip were obtained in the operating room with an image intensifier . No radiologist was in attendance. 147 seconds of fluoroscopy time was used. COMPARISON: 07/28/2016. FINDINGS: Images demonstrate open reduction and internal fixation of the intertrochanteric fracture of the lef t hip with a tj in the shaft of the femur, a screw in the neck of the femur, and a locking screw di stally in the shaft of the femur. IMPRESSION: 1. Satisfactory intraoperative imaging of the left hip. RPTAT: QQ .Braulio Carrillo MD, MD Date Time Electronically viewed and signed by .Braulio Carrillo MD, MD on 07/31/2016 20:05 .R/
[2016-07-31] MEDS: CEFAZOLIN 1 GM/50 ML (PMX) 50 ML IVPB SCH (20:52)
[2016-08-01] MEDS: LACTATED RINGER'S 1,000 ML IV SCH ×2 (01:50→15:10)
[2016-08-01] MEDS: morphine 2 MG INJ IV PRN ×6 (04:28→22:54)
[2016-08-01] MEDS: SOD CHLORIDE 0.9% 1,000 ML IV SCH ×2 (04:29→18:43)
[2016-08-01 04:30] VITALS: BP 108/58; PULSE 86; RESP 18
[2016-08-01] MEDS: CEFAZOLIN 1 GM/50 ML (PMX) 50 ML IVPB SCH ×2 (05:17→12:44)
[2016-08-01 08:40] VITALS: BP 113/56; RESP 18
[2016-08-01] MEDS ORDERED: ENOXAPARIN 30 MG/0.3 ML SYG SC SCH (09:00)
[2016-08-01] MEDS: LISINOPRIL 10 MG TAB PO SCH (09:00)
[2016-08-01] MEDS: CALCIUM CARBONATE 1.25 GM TAB PO SCH ×2 (09:04→21:21)
[2016-08-01] MEDS: DONEPEZIL 5 MG TAB PO SCH (09:05)
[2016-08-01] MEDS: CHOLECALCIFEROL 1,000 UNIT TAB PO SCH (09:05)
[2016-08-01] MEDS: MOMETASONE 0.24 GM INHALER INH SCH ×2 (09:05→21:21)
--- NOTE | 2016-08-01 15:20 | PN ---
Date/Time of Note Date/Time of Note DATE: 08/01/16 TIME: 15:14 Assessment/Plan VTE Prophylaxis VTE Prophylaxis Intervention: LMWH Lines/Catheters IV Catheter Type (from Nrs): Peripheral IV Urinary Cath still in place: Yes Reason Cath still needed: other (indicate) (monitor I&O) Assessment/Plan Chief Complaint/Hosp Course Impression and plan 1. Left hip fracture. Patient did have a mechanical fall after tripping on step. No reports of syncope or loss of consciousness. imaging of left hip that did show acute comminuted intertrochanteric fracture with angulation apex lateral. Patient is status post ORIF of the left hip. Continue to monitor. 2. Essential hypertension. Continue antihypertensives and adjust needed. Stable 3. Alzheimer's disease. Continue patient on her Alzheimer's medication 4. History of COPD. No active bronchospasm. Will provide with bronchodilators as needed. Stable Disposition and plan: Continue with analgesics. Status post left hip ORIF. Physical therapy is following. Discharge when medically stable and cleared by consultants. Will try for acute rehab Discussed plan of care with Dr. Bean Problems: Subjective 24 Hr Interval Summary Free Text/Dictation Still reports having some left hip pain Exam/Review of Systems Vital Signs Vitals Vital Signs Date Time Temp Pulse Resp B/P Pulse Ox O2 Delivery O2 Flow Rate FiO2 08/01/16 08:40 98.2 86 18 113/56 100 08/01/16 04:30 Nasal Cannula 2.0 07/30/16 21:58 21 Intake and Output 07/31/16 07/31/16 08/01/16 15:00 23:00 07:00 Intake Total 120 ml 750 ml 1410 ml Output Total 300 ml 400 ml 500 ml Balance -180 ml 350 ml 910 ml Exam Constitutional: no s/s of distress, resting Neck: No jvd Respiratory: normal air movement unchanged Cardiovascular: regular rate and rhythm Gastrointestinal: non-tender, soft Musculoskeletal: other (Noted with left hip fracture) s/p orif dressing in place Neurological: nl mental status, nl speech Skin: nl turgor Results Result Diagram: 07/31/16174607/31/161746 Results 24 hrs Laboratory Tests Test 07/31/16 17:47 White Blood Count 17.3 #H Red Blood Count 3.26 #L Hemoglobin 9.2 #L Hematocrit 28.5 #L Mean Corpuscular Volume 87.4 Mean Corpuscular Hemoglobin 28.2 L Mean Corpuscular Hemoglobin Concent 32.3 Red Cell Distribution Width 11.8 Platelet Count 172 Mean Platelet Volume 10.1 Neutrophils % 84.1 H Lymphocytes % 8.7 L Monocytes % 6.3 Eosinophils % 0.1 Basophils % 0.2 Nucleated Red Blood Cells % 0.0 Neutrophils # 14.6 H Lymphocytes # 1.5 Monocytes # 1.1 H Eosinophils # 0.0 Basophils # 0.0 Nucleated Red Blood Cells # 0.0 Sodium Level 127 L Potassium Level 4.2 Chloride Level 98 Carbon Dioxide Level 25 Anion Gap 8 Blood Urea Nitrogen 10 Creatinine 0.63 Glucose Level 133 Calcium Level 7.9 L Medications Medications Current Medications Calcium Carbonate (Oyster Shell Calcium) 1.25 gm BID PO Last administered on 09:04; Admin Dose 1.25 GM; Start 07/28/16 at 21:00 Cholecalciferol (Vitamin D) 1,000 unit DAILY PO Last administered on 08/01/16 09:05; Admin Dose 1,000 UNIT; Start 07/29/16 at 09:00 Donepezil HCl (Aricept) 5 mg DAILY PO Last administered on 08/01/16 09:05; Admin Dose 5 MG; Start 07/29/16 at 09:00 Lisinopril (Zestril) 10 mg DAILY PO Last administered on 07/30/16 08:26; Admin Dose 10 MG; Start 07/29/16 at 09:00 Mometasone Furoate (Asmanex) 1 puff BID INH Last administered on 08/01/16 09: 05; Admin Dose 1 PUFF; Start 07/28/16 at 21:00 Acetaminophen/ Hydrocodone Bitart ([place] (5/325)) 1 tab Q6H PRN PO MILD PAIN LEVEL 1-3 Last administered on 07/30/16 07:23; Admin Dose 1 TAB; Start at 17:30 Acetaminophen (Tylenol Tab) 650 mg Q6H PRN PO PAIN AND OR ELEVATED TEMP Last administered on 07/30/16 08:23; Admin Dose 650 MG; Start 07/28/16 at 17:30 Morphine Sulfate 2 mg 2 mg Q2H PRN IV PAIN Last administered on 08/01/16 12:39 ; Admin Dose 2 MG; Start 07/30/16 at 09:00 Lactated Ringer's 1,000 ml @ 75 mls/hr [id number] IV Last administered on 12:19; Admin Dose 75 MLS/HR; Start 07/31/16 at 12:30 Sodium Chloride (NS) 1,000 ml @ 80 mls/hr [id number] IV Last administered on 08/01 04:29; Admin Dose 80 MLS/HR; Start 07/31/16 at 16:46 Enoxaparin Sodium (Lovenox) 40 mg DAILY SC Last administered on 08/01/16 09:08 ; Admin Dose 40 MG; Start 08/01/16 at 09:00 Morphine Sulfate (morphine) 2 mg Q3H PRN IV pain; Start 07/31/16 at 17:00 Acetaminophen/ Hydrocodone Bitart ([place] (5/325)) 1 tab Q3H PRN PO PAIN; Start 07/31/16 at 17:00 FLAVIO FAN August 01, 2016 15:20
[2016-08-01 20:27] VITALS: BP 111/55; RESP 18
[2016-08-01] MEDS: HYDROCODONE/APAP (5/325) TAB PO PRN (21:37)
[2016-08-02] MEDS: morphine 2 MG INJ IV PRN ×3 (04:15→15:16)
[2016-08-02] MEDS: LACTATED RINGER'S 1,000 ML IV SCH (04:30)
[2016-08-02] MEDS: HYDROCODONE/APAP (5/325) TAB PO PRN ×3 (05:57→19:18)
[2016-08-02] MEDS: SOD CHLORIDE 0.9% 1,000 ML IV SCH ×2 (07:00→15:21)
[2016-08-02 07:13] VITALS: BP 106/51; RESP 19
[2016-08-02] MEDS: MOMETASONE 0.24 GM INHALER INH SCH ×2 (08:59→20:14)
[2016-08-02] MEDS: CHOLECALCIFEROL 1,000 UNIT TAB PO SCH (08:59)
[2016-08-02] MEDS: CALCIUM CARBONATE 1.25 GM TAB PO SCH ×2 (08:59→20:12)
[2016-08-02] MEDS: LISINOPRIL 10 MG TAB PO SCH (09:00)
[2016-08-02] MEDS: ENOXAPARIN 40 MG/0.4 ML SYG SC SCH (09:08)
[2016-08-02] MEDS: DONEPEZIL 5 MG TAB PO SCH (09:51)
--- NOTE | 2016-08-02 15:33 | PN ---
Date/Time of Note Date/Time of Note DATE: 08/02/16 TIME: 15:26 Assessment/Plan VTE Prophylaxis VTE Prophylaxis Intervention: LMWH Lines/Catheters IV Catheter Type (from [facility]): Peripheral IV Urinary Cath still in place: No Assessment/Plan Chief Complaint/Hosp Course Impression and plan 1. Left hip fracture. Patient did have a mechanical fall after tripping on step. No reports of syncope or loss of consciousness. imaging of left hip that did show acute comminuted intertrochanteric fracture with angulation apex lateral. Patient is status post ORIF of the left hip. continue on physical therapy 2. Essential hypertension. Continue antihypertensives and adjust needed. Stable 3. Alzheimer's disease. Continue patient on her Alzheimer's medication 4. History of COPD. No active bronchospasm. Will provide with bronchodilators as needed. Stable Disposition and plan: Continue with analgesics. Status post left hip ORIF. continue with physical therapy Discussed plan of care with Dr. Bean Problems: Subjective 24 Hr Interval Summary Free Text/Dictation no s/s distress. patient reluctant to work with PT Exam/Review of Systems Vital Signs Vitals Vital Signs Date Time Temp Pulse Resp B/P Pulse Ox O2 Delivery O2 Flow Rate FiO2 08/02/16 07:13 98.1 83 19 106/51 99 08/01/16 04:30 Nasal Cannula 2.0 07/30/16 21:58 21 Intake and Output 08/01/16 08/01/16 08/02/16 15:00 23:00 07:00 Intake Total 1100 ml 1440 ml Balance 1100 ml 1440 ml Exam Constitutional: no s/s of distress, resting, forgetful. Neck: No jvd Respiratory: normal air movement unchanged Cardiovascular: regular rate and rhythm Gastrointestinal: non-tender, soft Musculoskeletal: other (Noted with left hip fracture) s/p orif dressing in place Neurological: nl mental status, nl speech Skin: nl turgor Results Result Diagram: 07/31/16174607/31/161746 Medications Medications Current Medications Calcium Carbonate (Oyster Shell Calcium) 1.25 gm BID PO Last administered on 08:59; Admin Dose 1.25 GM; Start 07/28/16 at 21:00 Cholecalciferol (Vitamin D) 1,000 unit DAILY PO Last administered on 08/02/16 08:59; Admin Dose 1,000 UNIT; Start 07/29/16 at 09:00 Donepezil HCl (Aricept) 5 mg DAILY PO Last administered on 08/02/16 09:51; Admin Dose 5 MG; Start 07/29/16 at 09:00 Lisinopril (Zestril) 10 mg DAILY PO Last administered on 07/30/16 08:26; Admin Dose 10 MG; Start 07/29/16 at 09:00 Mometasone Furoate (Asmanex) 1 puff BID INH Last administered on 08/02/16 08: 59; Admin Dose 1 PUFF; Start 07/28/16 at 21:00 Acetaminophen/ Hydrocodone Bitart ([place] (5/325)) 1 tab Q6H PRN PO MILD PAIN LEVEL 1-3 Last administered on 08/02/16 05:57; Admin Dose 1 TAB; Start at 17:30 Acetaminophen (Tylenol Tab) 650 mg Q6H PRN PO PAIN AND OR ELEVATED TEMP Last administered on 07/30/16 08:23; Admin Dose 650 MG; Start 07/28/16 at 17:30 Morphine Sulfate 2 mg 2 mg Q2H PRN IV PAIN Last administered on 08/02/16 15:16 ; Admin Dose 2 MG; Start 07/30/16 at 09:00 Sodium Chloride (NS) 1,000 ml @ 80 mls/hr [id number] IV Last administered on 08/02 15:21; Admin Dose 80 MLS/HR; Start 07/31/16 at 16:46 Morphine Sulfate (morphine) 2 mg Q3H PRN IV pain; Start 07/31/16 at 17:00 Acetaminophen/ Hydrocodone Bitart ([place] (5/325)) 1 tab Q3H PRN PO PAIN Last administered on 08/02/16 13:39; Admin Dose 1 TAB; Start 07/31/16 at 17:00 Enoxaparin Sodium (Lovenox) 40 mg DAILY SC Last administered on 08/02/16 09:08 ; Admin Dose 40 MG; Start 08/02/16 at 09:00 FLAVIO FAN August 02, 2016 15:33
[2016-08-02 20:04] VITALS: BP 133/63; RESP 18
[2016-08-02] MEDS: DOCUSATE SODIUM 100 MG CAP PO SCH (20:12)
[2016-08-03] MEDS: HYDROCODONE/APAP (5/325) TAB PO PRN ×3 (04:03→20:09)
[2016-08-03] MEDS: morphine 2 MG INJ IV PRN ×2 (05:55→08:09)
[2016-08-03] MEDS: SOD CHLORIDE 0.9% 1,000 ML IV SCH (07:16)
[2016-08-03 08:01] VITALS: BP 138/63; RESP 20
[2016-08-03] MEDS: DOCUSATE SODIUM 100 MG CAP PO SCH ×2 (08:08→20:09)
[2016-08-03] MEDS: CALCIUM CARBONATE 1.25 GM TAB PO SCH ×2 (08:08→20:09)
[2016-08-03] MEDS: DONEPEZIL 5 MG TAB PO SCH (08:08)
[2016-08-03] MEDS: CHOLECALCIFEROL 1,000 UNIT TAB PO SCH (08:08)
[2016-08-03] MEDS: MOMETASONE 0.24 GM INHALER INH SCH ×2 (08:09→20:09)
[2016-08-03] MEDS: LISINOPRIL 10 MG TAB PO SCH (08:09)
[2016-08-03] MEDS: ENOXAPARIN 40 MG/0.4 ML SYG SC SCH (08:18)
--- NOTE | 2016-08-03 11:32 | PN ---
Date/Time of Note Date/Time of Note DATE: 08/03/16 TIME: 11:28 Assessment/Plan VTE Prophylaxis VTE Prophylaxis Intervention: SCD's Lines/Catheters IV Catheter Type (from Nrsg): Peripheral IV Urinary Cath still in place: No Assessment/Plan Assessment/Plan 81 yo community dwelling F with pmhx dementia presented with L hip pain following mechanical fall, found to have L hip fracture now sp ORIF #L hip fracture 2/2 mechanical fall: cute comminuted intertrochanteric fracture with angulation apex lateral sp ORIF by ortho -cont PT -rehab cs per care management rec #hyponatremia on recent labs: etio unclear stop IV fluids recheck in AM #HTN: cont home meds #AD: cont home meds #h/o COPDl cont current regimen Subjective 24 Hr Interval Summary Free Text/Dictation pt seen with her at bedside. RN assisted with translation services. Pt without acute complaint. Pt and asking about discharge plans and when pt will be returning home. Exam/Review of Systems Vital Signs Vitals Vital Signs Date Time Temp Pulse Resp B/P Pulse Ox O2 Delivery O2 Flow Rate FiO2 08/03/16 08:01 98.2 85 20 138/63 97 08/01/16 04:30 Nasal Cannula 2.0 07/30/16 21:58 21 Intake and Output 08/02/16 08/02/16 08/03/16 15:00 23:00 07:00 Intake Total 1520 ml 1283 ml Output Total 600 ml Balance 1520 ml 683 ml Exam NAD, laying flat in bed no mrg lungs clear abd soft no le edema no rashes responds to questions appropriately in [place] Results Result Diagram: 07/31/16 1747 07/31/16 1747 Medications Medications Current Medications Calcium Carbonate (Oyster Shell Calcium) 1.25 gm BID PO Last administered on 08:08; Admin Dose 1.25 GM; Start 07/28/16 at 21:00 Cholecalciferol (Vitamin D) 1,000 unit DAILY PO Last administered on 08/03/16 08:08; Admin Dose 1,000 UNIT; Start 07/29/16 at 09:00 Donepezil HCl (Aricept) 5 mg DAILY PO Last administered on 08/03/16 08:08; Admin Dose 5 MG; Start 07/29/16 at 09:00 Lisinopril (Zestril) 10 mg DAILY PO Last administered on 08/03/16 08:09; Admin Dose 10 MG; Start 07/29/16 at 09:00 Mometasone Furoate (Asmanex) 1 puff BID INH Last administered on 08/03/16 08: 09; Admin Dose 1 PUFF; Start 07/28/16 at 21:00 Acetaminophen/ Hydrocodone Bitart ([place] (5/325)) 1 tab Q6H PRN PO MILD PAIN LEVEL 1-3 Last administered on 08/02/16 05:57; Admin Dose 1 TAB; Start at 17:30 Acetaminophen (Tylenol Tab) 650 mg Q6H PRN PO PAIN AND OR ELEVATED TEMP Last administered on 07/30/16 08:23; Admin Dose 650 MG; Start 07/28/16 at 17:30 Morphine Sulfate 2 mg 2 mg Q2H PRN IV PAIN Last administered on 08/03/16 08:09 ; Admin Dose 2 MG; Start 07/30/16 at 09:00 Sodium Chloride (NS) 1,000 ml @ 80 mls/hr [id number] IV Last administered on 08/02 15:21; Admin Dose 80 MLS/HR; Start 07/31/16 at 16:46 Morphine Sulfate (morphine) 2 mg Q3H PRN IV pain; Start 07/31/16 at 17:00 Acetaminophen/ Hydrocodone Bitart ([place] (5/325)) 1 tab Q3H PRN PO PAIN Last administered on 08/02/16 19:18; Admin Dose 1 TAB; Start 07/31/16 at 17:00 Enoxaparin Sodium (Lovenox) 40 mg DAILY SC Last administered on 08/03/16 08:18 ; Admin Dose 40 MG; Start 08/02/16 at 09:00 Docusate Sodium (Colace) 100 mg BID PO Last administered on 08/03/16 08:08; Admin Dose 100 MG; Start 08/02/16 at 21:00 MAMIE CREWS MD August 03, 2016 11:32
--- NOTE | 2016-08-03 19:12 | PN ---
DATE: 08/03/2016 Third postop day. Afebrile with stable vital signs. Latest H and H was 9.2/28.5 postop. Postop x- rays of the left hip show excellent alignment; however, because of the severe osteoporosis and unsta ble nature of fracture, nonweightbearing for about 6 weeks is recommended. Dictated By: BURKE BERMAN/MARLENE Conf#: [id number] DID#: [id number]
[2016-08-03 22:10] VITALS: BP 139/65; RESP 19
[2016-08-04] MEDS: HYDROCODONE/APAP (5/325) TAB PO PRN ×2 (06:49→20:23)
[2016-08-04 07:37] VITALS: BP 150/65; RESP 19
[2016-08-04] MEDS: CALCIUM CARBONATE 1.25 GM TAB PO SCH ×2 (08:43→21:14)
[2016-08-04] MEDS: DONEPEZIL 5 MG TAB PO SCH (08:43)
[2016-08-04] MEDS: LISINOPRIL 10 MG TAB PO SCH (08:43)
[2016-08-04] MEDS: MOMETASONE 0.24 GM INHALER INH SCH ×2 (08:43→21:14)
[2016-08-04] MEDS: CHOLECALCIFEROL 1,000 UNIT TAB PO SCH (08:43)
[2016-08-04] MEDS: DOCUSATE SODIUM 100 MG CAP PO SCH ×2 (08:43→21:14)
[2016-08-04] MEDS: ENOXAPARIN 40 MG/0.4 ML SYG SC SCH (08:48)
[2016-08-04] MEDS ORDERED: POLYETHYLENE GLYCOL 17 GM PACKET PO ONE (16:00)
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
[2016-08-04 20:45] VITALS: BP 114/77; RESP 20
[2016-08-04] MEDS: PANTOPRAZOLE 40 MG INJ IV SCH (21:14)
[2016-08-05] MEDS: HYDROCODONE/APAP (5/325) TAB PO PRN ×2 (03:41→20:15)
[2016-08-05 06:13] LABS: POTASSIUM 4.2 mmol/L (3.5-5.1)
[2016-08-05] MEDS: PANTOPRAZOLE 40 MG INJ IV SCH (06:15)
[2016-08-05 06:16] LABS: CALCIUM 8.1 mg/dl (8.4-10.2); CREATININE 0.48 mg/dl (0.44-1.00)
[2016-08-05 07:52] VITALS: BP 143/66; RESP 19
[2016-08-05] MEDS: ENOXAPARIN 40 MG/0.4 ML SYG SC SCH (09:27)
[2016-08-05] MEDS: MOMETASONE 0.24 GM INHALER INH SCH ×2 (09:27→21:14)
[2016-08-05] MEDS: CHOLECALCIFEROL 1,000 UNIT TAB PO SCH (09:28)
[2016-08-05] MEDS: CALCIUM CARBONATE 1.25 GM TAB PO SCH ×2 (09:28→21:20)
[2016-08-05] MEDS: DONEPEZIL 5 MG TAB PO SCH (09:28)
[2016-08-05] MEDS: DOCUSATE SODIUM 100 MG CAP PO SCH ×2 (09:28→21:14)
[2016-08-05] MEDS: LISINOPRIL 10 MG TAB PO SCH (09:28)
[2016-08-05] MEDS: POLYETHYLENE GLYCOL 17 GM PACKET PO SCH (09:28)
--- NOTE | 2016-08-05 16:41 | PN ---
Date/Time of Note Date/Time of Note DATE: 08/05/16 TIME: 16:40 Assessment/Plan VTE Prophylaxis VTE Prophylaxis Intervention: SCD's Lines/Catheters IV Catheter Type (from Nrsg): Saline Lock Urinary Cath still in place: No Assessment/Plan Assessment/Plan Assessment/Plan 81 yo community dwelling F with pmhx dementia presented with L hip pain following mechanical fall, found to have L hip fracture now sp ORIF #L hip fracture 2/2 mechanical fall: cute comminuted intertrochanteric fracture with angulation apex lateral sp ORIF by ortho -cont PT -rehab cs per care management rec #constipation (resolve) cont miralax #previous hyponatremia improved. free water restriction #HTN: cont home meds #AD: cont home meds #h/o COPD cont current regimen Subjective 24 Hr Interval Summary Free Text/Dictation Pt now having regular BMs Exam/Review of Systems Vital Signs Vitals Vital Signs Date Time Temp Pulse Resp B/P Pulse Ox O2 Delivery O2 Flow Rate FiO2 08/05/16 07:52 98.0 85 19 143/66 98 Intake and Output 08/04/16 08/04/16 08/05/16 15:00 23:00 07:00 Intake Total 560 ml 600 ml Balance 560 ml 600 ml Exam nad rrr no mrg lungs clear abd soft no rashes no le edema Results Result Diagram: 08/05/16 0500 Results 24 hrs Laboratory Tests Test 08/05/16 05:00 Sodium Level 132 L Potassium Level 4.2 Chloride Level 103 Carbon Dioxide Level 28 Anion Gap 5 L Blood Urea Nitrogen 11 Creatinine 0.48 Glucose Level 100 Calcium Level 8.1 L Medications Medications Current Medications Calcium Carbonate (Oyster Shell Calcium) 1.25 gm BID PO Last administered on 09:28; Admin Dose 1.25 GM; Start 07/28/16 at 21:00 Cholecalciferol (Vitamin D) 1,000 unit DAILY PO Last administered on 08/05/16 09:28; Admin Dose 1,000 UNIT; Start 07/29/16 at 09:00 Donepezil HCl (Aricept) 5 mg DAILY PO Last administered on 08/05/16 09:28; Admin Dose 5 MG; Start 07/29/16 at 09:00 Lisinopril (Zestril) 10 mg DAILY PO Last administered on 08/05/16 09:28; Admin Dose 10 MG; Start 07/29/16 at 09:00 Mometasone Furoate (Asmanex) 1 puff BID INH Last administered on 08/05/16 09: 27; Admin Dose 1 PUFF; Start 07/28/16 at 21:00 Acetaminophen/ Hydrocodone Bitart ([place] (5/325)) 1 tab Q6H PRN PO MILD PAIN LEVEL 1-3 Last administered on 08/05/16 03:41; Admin Dose 1 TAB; Start at 17:30 Acetaminophen (Tylenol Tab) 650 mg Q6H PRN PO PAIN AND OR ELEVATED TEMP Last administered on 07/30/16 08:23; Admin Dose 650 MG; Start 07/28/16 at 17:30 Morphine Sulfate (morphine) 2 mg Q2H PRN IV PAIN Last administered on 08:09; Admin Dose 2 MG; Start 07/30/16 at 09:00 Acetaminophen/ Hydrocodone Bitart ([place] (5/325)) 1 tab Q3H PRN PO PAIN Last administered on 08/04/16 20:23; Admin Dose 1 TAB; Start 07/31/16 at 17:00 Enoxaparin Sodium (Lovenox) 40 mg DAILY SC Last administered on 08/05/16 09:27 ; Admin Dose 40 MG; Start 08/02/16 at 09:00 Docusate Sodium (Colace) 100 mg BID PO Last administered on 08/05/16 09:28; Admin Dose 100 MG; Start 08/02/16 at 21:00 Polyethylene Glycol (Miralax) 17 gm DAILY PO Last administered on 08/05/16 09: 28; Admin Dose 17 GM; Start 08/05/16 at 09:00 Al Hydrox/Mg Hydrox/Simethicone (Mag-Al Plus) 30 ml TID PRN PO GASTROINTESTINAL UPSET; Start 08/05/16 at 09:00 MAMIE CREWS MD August 05, 2016 16:41
[2016-08-05 20:42] VITALS: BP 133/60; RESP 20
[2016-08-06] MEDS: AL HYDROX/MG HYDROX/SIMETH 30 ML CUP PO PRN ×2 (02:32→20:49)
[2016-08-06] MEDS: POLYETHYLENE GLYCOL 17 GM PACKET PO SCH (05:16)
[2016-08-06 06:41] LABS: CALCIUM 8.3 mg/dl (8.4-10.2); CREATININE 0.44 mg/dl (0.44-1.00); POTASSIUM 4.3 mmol/L (3.5-5.1)
[2016-08-06 08:13] VITALS: BP 139/62; RESP 18
[2016-08-06] MEDS: DOCUSATE SODIUM 100 MG CAP PO SCH ×2 (09:20→20:45)
[2016-08-06] MEDS: MOMETASONE 0.24 GM INHALER INH SCH ×2 (09:20→20:56)
[2016-08-06] MEDS: HYDROCODONE/APAP (5/325) TAB PO PRN ×2 (09:21→20:45)
[2016-08-06] MEDS: CHOLECALCIFEROL 1,000 UNIT TAB PO SCH (09:21)
[2016-08-06] MEDS: DONEPEZIL 5 MG TAB PO SCH (09:21)
[2016-08-06] MEDS: CALCIUM CARBONATE 1.25 GM TAB PO SCH ×2 (09:21→20:45)
[2016-08-06] MEDS: LISINOPRIL 10 MG TAB PO SCH (09:22)
[2016-08-06] MEDS: ENOXAPARIN 40 MG/0.4 ML SYG SC SCH (09:23)
--- NOTE | 2016-08-06 11:26 | PN ---
Date/Time of Note Date/Time of Note DATE: 08/06/16 TIME: 11:25 Assessment/Plan VTE Prophylaxis VTE Prophylaxis Intervention: SCD's Lines/Catheters IV Catheter Type (from Nrsg): Saline Lock Urinary Cath still in place: No Assessment/Plan Assessment/Plan 81 yo community dwelling F with pmhx dementia presented with L hip pain following mechanical fall, found to have L hip fracture now sp ORIF #L hip fracture 2/2 mechanical fall: cute comminuted intertrochanteric fracture with angulation apex lateral sp ORIF by ortho -cont PT -rehab cs per care management rec #constipation (resolve) cont miralax #hyponatremia free water restriction, check urine and serum osms #HTN: cont home meds #AD: cont home meds #h/o COPD cont current regimen Subjective 24 Hr Interval Summary Free Text/Dictation Used language line to facilitate communication between patient and No complaints. Anxious to know when she'll be going to rehab. hip pain well controlled Exam/Review of Systems Vital Signs Vitals Vital Signs Date Time Temp Pulse Resp B/P Pulse Ox O2 Delivery O2 Flow Rate FiO2 08/06/16 08:13 98.3 93 18 139/62 98 Intake and Output 08/05/16 08/05/16 08/06/16 15:00 23:00 07:00 Intake Total 730 ml 270 ml Balance 730 ml 270 ml Exam nad, laying in bed no mrg lungs clear abd soft no le edema no rashes responds to questions appropriately Results Result Diagram: 08/06/16 0515 Results 24 hrs Laboratory Tests Test 08/06/16 05:15 Sodium Level 129 L Potassium Level 4.3 Chloride Level 98 Carbon Dioxide Level 27 Anion Gap 8 Blood Urea Nitrogen 12 Creatinine 0.44 Glucose Level 84 Osmolality Calcium Level 8.3 L Medications Medications Current Medications Calcium Carbonate (Oyster Shell Calcium) 1.25 gm BID PO Last administered on 09:21; Admin Dose 1.25 GM; Start 07/28/16 at 21:00 Cholecalciferol (Vitamin D) 1,000 unit DAILY PO Last administered on 08/06/16 09:21; Admin Dose 1,000 UNIT; Start 07/29/16 at 09:00 Donepezil HCl (Aricept) 5 mg DAILY PO Last administered on 08/06/16 09:21; Admin Dose 5 MG; Start 07/29/16 at 09:00 Lisinopril (Zestril) 10 mg DAILY PO Last administered on 08/06/16 09:22; Admin Dose 10 MG; Start 07/29/16 at 09:00 Mometasone Furoate (Asmanex) 1 puff BID INH Last administered on 08/06/16 09:20 ; Admin Dose 1 PUFF; Start 07/28/16 at 21:00 Acetaminophen/ Hydrocodone Bitart ([place] (5/325)) 1 tab Q6H PRN PO MILD PAIN LEVEL 1-3 Last administered on 08/06/16 09:21; Admin Dose 1 TAB; Start 07/28/16 at 17:30 Acetaminophen (Tylenol Tab) 650 mg Q6H PRN PO PAIN AND OR ELEVATED TEMP Last administered on 07/30/16 08:23; Admin Dose 650 MG; Start 07/28/16 at 17:30 Morphine Sulfate (morphine) 2 mg Q2H PRN IV PAIN Last administered on 08:09; Admin Dose 2 MG; Start 07/30/16 at 09:00 Acetaminophen/ Hydrocodone Bitart ([place] (5/325)) 1 tab Q3H PRN PO PAIN Last administered on 08/04/16 20:23; Admin Dose 1 TAB; Start 07/31/16 at 17:00 Enoxaparin Sodium (Lovenox) 40 mg DAILY SC Last administered on 08/06/16 09:23 ; Admin Dose 40 MG; Start 08/02/16 at 09:00 Docusate Sodium (Colace) 100 mg BID PO Last administered on 08/06/16 09:20; Admin Dose 100 MG; Start 08/02/16 at 21:00 Polyethylene Glycol (Miralax) 17 gm DAILY PO Last administered on 08/06/16 05: 16; Admin Dose 17 GM; Start 08/05/16 at 09:00 Al Hydrox/Mg Hydrox/Simethicone (Mag-Al Plus) 30 ml TID PRN PO GASTROINTESTINAL UPSET Last administered on 08/06/16 02:32; Admin Dose 30 ML; Start 08/05/16 at 09:00 MAMIE CREWS MD Aug 06, 2016 11:26
[2016-08-06 20:07] VITALS: BP 141/65; RESP 19
[2016-08-07] MEDS: AL HYDROX/MG HYDROX/SIMETH 30 ML CUP PO PRN (05:20)
[2016-08-07] MEDS: HYDROCODONE/APAP (5/325) TAB PO PRN ×2 (07:40→18:45)
[2016-08-07 09:44] VITALS: BP 144/65; RESP 19
[2016-08-07] MEDS: ENOXAPARIN 40 MG/0.4 ML SYG SC SCH (10:24)
[2016-08-07] MEDS: DOCUSATE SODIUM 100 MG CAP PO SCH ×2 (14:16→21:30)
[2016-08-07] MEDS: CALCIUM CARBONATE 1.25 GM TAB PO SCH ×2 (14:16→21:30)
[2016-08-07] MEDS: DONEPEZIL 5 MG TAB PO SCH (14:16)
[2016-08-07] MEDS: CHOLECALCIFEROL 1,000 UNIT TAB PO SCH (14:17)
[2016-08-07] MEDS: MOMETASONE 0.24 GM INHALER INH SCH ×2 (14:17→21:30)
[2016-08-07] MEDS: POLYETHYLENE GLYCOL 17 GM PACKET PO SCH (14:17)
[2016-08-07] MEDS: LISINOPRIL 10 MG TAB PO SCH (14:26)
--- NOTE | 2016-08-07 16:52 | PN ---
Date/Time of Note Date/Time of Note DATE: 08/07/16 TIME: 16:50 Assessment/Plan VTE Prophylaxis VTE Prophylaxis Intervention: SCD's Lines/Catheters IV Catheter Type (from Nrsg): Saline Lock Urinary Cath still in place: No Assessment/Plan Assessment/Plan Assessment/Plan 81 yo community dwelling F with pmhx dementia presented with L hip pain following mechanical fall, found to have L hip fracture now sp ORIF #L hip fracture 04/09 mechanical fall: cute comminuted intertrochanteric fracture with angulation apex lateral sp ORIF by ortho -cont PT -await SNF approval #low vit D: change from daily 1000 int units dilia to 50k units/week ergo #constipation (resolved) cont miralax #hyponatremia free water restriction: recheck ChemP in AM #HTN: cont home meds #AD: cont home meds #h/o COPD cont current regimen DVT prophx: SCDs Subjective 24 Hr Interval Summary Free Text/Dictation Encounter facilitated with language line Pt seen with . She is feeling well, eating well, having regular BMs and is without complaint. Exam/Review of Systems Vital Signs Vitals Vital Signs Date Time Temp Pulse Resp B/P Pulse Ox O2 Delivery O2 Flow Rate FiO2 08/07/16 09:44 98.0 90 19 144/65 95 Intake and Output 08/06/16 08/06/16 08/07/16 14:59 22:59 06:59 Intake Total 250 ml 600 ml Balance 250 ml 600 ml Exam nad rrr no mrg lungs clear abd soft no le edema no rashes Results Result Diagram: 08/06/16 0515 Medications Medications Current Medications Calcium Carbonate (Oyster Shell Calcium) 1.25 gm BID PO Last administered on 14:16; Admin Dose 1.25 GM; Start 07/28/16 at 21:00 Donepezil HCl (Aricept) 5 mg DAILY PO Last administered on 08/07/16 14:16; Admin Dose 5 MG; Start 07/29/16 at 09:00 Lisinopril (Zestril) 10 mg DAILY PO Last administered on 08/07/16 14:26; Admin Dose 10 MG; Start 07/29/16 at 09:00 Mometasone Furoate (Asmanex) 1 puff BID INH Last administered on 08/07/16 14:17 ; Admin Dose 1 PUFF; Start 07/28/16 at 21:00 Acetaminophen/ Hydrocodone Bitart ([place] (5/325)) 1 tab Q6H PRN PO MILD PAIN LEVEL 1-3 Last administered on 08/07/16 07:40; Admin Dose 1 TAB; Start 07/28/16 at 17:30 Acetaminophen (Tylenol Tab) 650 mg Q6H PRN PO PAIN AND OR ELEVATED TEMP Last administered on 07/30/16 08:23; Admin Dose 650 MG; Start 07/28/16 at 17:30 Morphine Sulfate (morphine) 2 mg Q2H PRN IV PAIN Last administered on 08:09; Admin Dose 2 MG; Start 07/30/16 at 09:00 Acetaminophen/ Hydrocodone Bitart ([place] (5/325)) 1 tab Q3H PRN PO PAIN Last administered on 08/04/16 20:23; Admin Dose 1 TAB; Start 07/31/16 at 17:00 Enoxaparin Sodium (Lovenox) 40 mg DAILY SC Last administered on 08/07/16 10:24 ; Admin Dose 40 MG; Start 08/02/16 at 09:00 Docusate Sodium (Colace) 100 mg BID PO Last administered on 08/07/16 14:16; Admin Dose 100 MG; Start 08/02/16 at 21:00 Polyethylene Glycol (Miralax) 17 gm DAILY PO Last administered on 08/07/16 14: 17; Admin Dose 17 GM; Start 08/05/16 at 09:00 Al Hydrox/Mg Hydrox/Simethicone (Mag-Al Plus) 30 ml TID PRN PO GASTROINTESTINAL UPSET Last administered on 08/07/16 05:20; Admin Dose 30 ML; Start 08/05/16 at 09:00 Ergocalciferol (Drisdol) 50,000 unit Sa@09 PO ; Start 08/08/16 at 09:00 Procedures Procedures vit D level 20s MAMIE CREWS MD Aug 07, 2016 16:52
[2016-08-07 22:04] VITALS: BP 138/58; RESP 20
[2016-08-08 06:08] LABS: CALCIUM 8.7 mg/dl (8.4-10.2); CREATININE 0.51 mg/dl (0.44-1.00); POTASSIUM 4.7 mmol/L (3.5-5.1)
[2016-08-08] MEDS: DOCUSATE SODIUM 100 MG CAP PO SCH ×2 (08:49→21:18)
[2016-08-08] MEDS: LISINOPRIL 10 MG TAB PO SCH (08:50)
[2016-08-08] MEDS: MOMETASONE 0.24 GM INHALER INH SCH ×2 (08:50→21:18)
[2016-08-08] MEDS: CALCIUM CARBONATE 1.25 GM TAB PO SCH ×2 (08:50→21:18)
[2016-08-08] MEDS: POLYETHYLENE GLYCOL 17 GM PACKET PO SCH (08:50)
[2016-08-08] MEDS: DONEPEZIL 5 MG TAB PO SCH (08:50)
[2016-08-08] MEDS: ENOXAPARIN 40 MG/0.4 ML SYG SC SCH (08:51)
[2016-08-08] MEDS: HYDROCODONE/APAP (5/325) TAB PO PRN ×3 (08:55→22:25)
[2016-08-08] MEDS ORDERED: ERGOCALCIFEROL 50,000 UNIT CAP PO SCH (09:00)
--- NOTE | 2016-08-08 10:05 | PN ---
Date/Time of Note Date/Time of Note DATE: 08/08/16 TIME: 10:03 Assessment/Plan VTE Prophylaxis VTE Prophylaxis Intervention: SCD's Lines/Catheters IV Catheter Type (from Nrsg): Saline Lock Urinary Cath still in place: No Assessment/Plan Assessment/Plan 81 yo community dwelling F with pmhx dementia presented with L hip pain following mechanical fall, found to have L hip fracture now sp ORIF #L hip fracture 2/2 mechanical fall: cute comminuted intertrochanteric fracture with angulation apex lateral sp ORIF by ortho -cont PT -await SNF approval #low vit D: changed from daily 1000 int units dilia to 50k units/week ergo 6.2 #constipation (resolved) cont miralax #hyponatremia: total free water restriction check AM cortisol and TSH urine/serum osms pending (send out) #HTN: cont home meds #AD: cont home meds #h/o COPD cont current regimen DVT prophx: SCDs Subjective 24 Hr Interval Summary Free Text/Dictation Pt feels well. Spoke with her daughter over the phone who states she is very close to picking a [facility] for the patient Exam/Review of Systems Vital Signs Vitals Vital Signs Date Time Temp Pulse Resp B/P Pulse Ox O2 Delivery O2 Flow Rate FiO2 08/07/16 22:04 98.1 75 20 138/58 97 Intake and Output 08/07/16 08/07/16 08/08/16 15:00 23:00 07:00 Intake Total 960 ml 100 ml Balance 960 ml 100 ml Exam nad, sitting up in bed no mrg lungs clear abd soft no rashes Results Result Diagram: 08/08/16 0445 Results 24 hrs Laboratory Tests Test 08/08/16 04:45 Sodium Level 128 L Potassium Level 4.7 Chloride Level 96 L Carbon Dioxide Level 27 Anion Gap 10 Blood Urea Nitrogen 12 Creatinine 0.51 Glucose Level 119 Calcium Level 8.7 Medications Medications Current Medications Calcium Carbonate (Oyster Shell Calcium) 1.25 gm BID PO Last administered on 08:50; Admin Dose 1.25 GM; Start 07/28/16 at 21:00 Donepezil HCl (Aricept) 5 mg DAILY PO Last administered on 08/08/16 08:50; Admin Dose 5 MG; Start 07/29/16 at 09:00 Lisinopril (Zestril) 10 mg DAILY PO Last administered on 08/08/16 08:50; Admin Dose 10 MG; Start 07/29/16 at 09:00 Mometasone Furoate (Asmanex) 1 puff BID INH Last administered on 08/08/16 08:50 ; Admin Dose 1 PUFF; Start 07/28/16 at 21:00 Acetaminophen/ Hydrocodone Bitart ([place] (5/325)) 1 tab Q6H PRN PO MILD PAIN LEVEL 1-3 Last administered on 08/08/16 08:55; Admin Dose 1 TAB; Start 07/28/16 at 17:30 Acetaminophen (Tylenol Tab) 650 mg Q6H PRN PO PAIN AND OR ELEVATED TEMP Last administered on 07/30/16 08:23; Admin Dose 650 MG; Start 07/28/16 at 17:30 Morphine Sulfate (morphine) 2 mg Q2H PRN IV PAIN Last administered on 08:09; Admin Dose 2 MG; Start 07/30/16 at 09:00 Acetaminophen/ Hydrocodone Bitart ([place] (5/325)) 1 tab Q3H PRN PO PAIN Last administered on 08/04/16 20:23; Admin Dose 1 TAB; Start 07/31/16 at 17:00 Enoxaparin Sodium (Lovenox) 40 mg DAILY SC Last administered on 08/08/16 08:51 ; Admin Dose 40 MG; Start 08/02/16 at 09:00 Docusate Sodium (Colace) 100 mg BID PO Last administered on 08/08/16 08:49; Admin Dose 100 MG; Start 08/02/16 at 21:00 Polyethylene Glycol (Miralax) 17 gm DAILY PO Last administered on 08/08/16 08: 50; Admin Dose 17 GM; Start 08/05/16 at 09:00 Al Hydrox/Mg Hydrox/Simethicone (Mag-Al Plus) 30 ml TID PRN PO GASTROINTESTINAL UPSET Last administered on 08/07/16 05:20; Admin Dose 30 ML; Start 08/05/16 at 09:00 Ergocalciferol (Drisdol) 50,000 unit Sa@09 PO Last administered on 08/08/16 08: 53; Admin Dose 50,000 UNIT; Start 08/08/16 at 09:00 Procedures Procedures Na still low MAMIE CREWS MD Aug 08, 2016 10:05
[2016-08-08] MEDS: AL HYDROX/MG HYDROX/SIMETH 30 ML CUP PO PRN (15:48)
[2016-08-08 20:44] VITALS: BP 147/65; RESP 18
[2016-08-09] MEDS: HYDROCODONE/APAP (5/325) TAB PO PRN ×2 (05:05→23:46)
[2016-08-09 06:20] LABS: CALCIUM 8.5 mg/dl (8.4-10.2); CREATININE 0.44 mg/dl (0.44-1.00); POTASSIUM 5.3 mmol/L (3.5-5.1)
[2016-08-09 06:52] LABS: THYROID STIMULATING HORMONE 5.47 MIU/L (0.465-4.680)
[2016-08-09 07:34] VITALS: BP 120/54; RESP 16
[2016-08-09] MEDS: POLYETHYLENE GLYCOL 17 GM PACKET PO SCH (09:00)
[2016-08-09] MEDS: DOCUSATE SODIUM 100 MG CAP PO SCH ×2 (09:05→20:54)
[2016-08-09] MEDS: CALCIUM CARBONATE 1.25 GM TAB PO SCH ×2 (09:05→20:54)
[2016-08-09] MEDS: DONEPEZIL 5 MG TAB PO SCH (09:05)
[2016-08-09] MEDS: MOMETASONE 0.24 GM INHALER INH SCH ×2 (09:05→20:54)
[2016-08-09] MEDS: ENOXAPARIN 40 MG/0.4 ML SYG SC SCH (09:06)
[2016-08-09] MEDS: LISINOPRIL 10 MG TAB PO SCH (09:06)
--- NOTE | 2016-08-09 09:10 | PN ---
Date/Time of Note Date/Time of Note DATE: 08/09/16 TIME: 09:06 Assessment/Plan VTE Prophylaxis VTE Prophylaxis Intervention: LMWH Lines/Catheters IV C[facility]ter Type (from [facility] Saline Lock Urinary Cath still in place: No Assessment/Plan Problems: (1) Epigastric pain Status: Acute Comment: Patient has not been on any type of GI prophylaxis. Go ahead and start that. Further investigation is not warranted based on the physical exam complaints or other findings however in the morning if she is still persistent then we may need to pursue (2) COPD (chronic obstructive pulmonary disease) Status: Chronic Comment: Well compensated. Qualifiers: COPD type: unspecified COPD Qualified Code: J44.9 - Chronic obstructive pulmonary disease, unspecified COPD type (3) Fracture, intertrochanteric, left femur Status: Acute Comment: Noted. She has had surgical repair. She is going with rehabilitation now. Awaiting placement to an ECF when medically stable Qualifiers: Encounter type: initial encounter Fracture type: closed Qualified Code: S72.142A - Fracture, intertrochanteric, left femur, closed, initial encounter (4) Diastolic dysfunction Status: Chronic Comment: Noted. Do not believe that this is causing hyponatremia (5) Essential hypertension Status: Chronic Comment: Adequately controlled. She is not on a diuretic to account for the hyponatremia (6) Vitamin D deficiency Status: Chronic Comment: She is on replacement therapy now (7) Hyponatremia Status: Acute Comment: This came on during the hospitalization. There is no specific clear- cut cause for this although very easily could be the narcotic therapy. Do not believe she has a pulmonary issue to account for SIADH. The cortisol level and TSH are not enough to account for this. We will give her 1 dose of oral sodium to see if we can help balance this. Please note she does not have systolic heart failure Subjective 24 Hr Interval Summary Free Text/Dictation Pleasant female sitting in bed with her at the bedside. Constitutional: no complaints (No fever chills or sweats) Respiratory: no complaints (No shortness of breath or wheezing) Cardiovascular: no complaints (No chest pain or palpitations) Gastrointestinal: pain (Complains of epigastric pain over the last few days. Denies constipation.) Genitourinary: no complaints Musculoskeletal: other (Pain left hip) Exam/Review of Systems Vital Signs Vitals Vital Signs Date Time Temp Pulse Resp B/P Pulse Ox O2 Delivery O2 Flow Rate FiO2 08/09/16 07:34 98.5 95 16 120/54 96 Intake and Output 08/08/16 08/08/16 08/09/16 15:00 23:00 07:00 Intake Total 700 ml 240 ml Balance 700 ml 240 ml Exam Constitutional: alert Neck: non-tender, supple Respiratory: clear to auscultation, normal air movement Cardiovascular: nl pulses, regular rate and rhythm Gastrointestinal: nl liver, spleen, non-tender (No rebound tenderness), soft Results Result Diagram: 08/09/16 0509 Results 24 hrs Laboratory Tests Test 08/09/16 05:09 Sodium Level 126 L Potassium Level 5.3 H Chloride Level 96 L Carbon Dioxide Level 26 Anion Gap 9 Blood Urea Nitrogen 14 Creatinine 0.44 Glucose Level 89 Calcium Level 8.5 Thyroid Stimulating Hormone (TSH) 5.470 H Random Cortisol 15.8 Medications Medications Current Medications Calcium Carbonate (Oyster Shell Calcium) 1.25 gm BID PO Last administered on 21:18; Admin Dose 1.25 GM; Start 07/28/16 at 21:00 Donepezil HCl (Aricept) 5 mg DAILY PO Last administered on 08/08/16 08:50; Admin Dose 5 MG; Start 07/29/16 at 09:00 Lisinopril (Zestril) 10 mg DAILY PO Last administered on 08/08/16 08:50; Admin Dose 10 MG; Start 07/29/16 at 09:00 Mometasone Furoate (Asmanex) 1 puff BID INH Last administered on 08/08/16 21:18 ; Admin Dose 1 PUFF; Start 07/28/16 at 21:00 Acetaminophen/ Hydrocodone Bitart ([place] (5/325)) 1 tab Q6H PRN PO MILD PAIN LEVEL 1-3 Last administered on 08/08/16 17:45; Admin Dose 1 TAB; Start 07/28/16 at 17:30 Acetaminophen (Tylenol Tab) 650 mg Q6H PRN PO PAIN AND OR ELEVATED TEMP Last administered on 07/30/16 08:23; Admin Dose 650 MG; Start 07/28/16 at 17:30 Morphine Sulfate (morphine) 2 mg Q2H PRN IV PAIN Last administered on 08:09; Admin Dose 2 MG; Start 07/30/16 at 09:00 Acetaminophen/ Hydrocodone Bitart ([place] (5/325)) 1 tab Q3H PRN PO PAIN Last administered on 08/09/16 05:05; Admin Dose 1 TAB; Start 07/31/16 at 17:00 Enoxaparin Sodium (Lovenox) 40 mg DAILY SC Last administered on 08/08/16 08:51 ; Admin Dose 40 MG; Start 08/02/16 at 09:00 Docusate Sodium (Colace) 100 mg BID PO Last administered on 08/08/16 21:18; Admin Dose 100 MG; Start 08/02/16 at 21:00 Polyethylene Glycol (Miralax) 17 gm DAILY PO Last administered on 08/08/16 08: 50; Admin Dose 17 GM; Start 08/05/16 at 09:00 Al Hydrox/Mg Hydrox/Simethicone (Mag-Al Plus) 30 ml TID PRN PO GASTROINTESTINAL UPSET Last administered on 08/08/16 15:48; Admin Dose 30 ML; Start 08/05/16 at 09:00 Ergocalciferol (Drisdol) 50,000 unit Sa@09 PO Last administered on 08/08/16 08: 53; Admin Dose 50,000 UNIT; Start 08/08/16 at 09:00 FIDEL VILLALBA MD Aug 09, 2016 09:10
[2016-08-09] MEDS ORDERED: PANTOPRAZOLE (EC) 40 MG TAB PO ONE (09:30)
[2016-08-09] MEDS ORDERED: SODIUM CHLORIDE 1 GM TAB PO ONE (10:00)
[2016-08-09 19:25] VITALS: BP 119/58; RESP 18
[2016-08-10] MEDS ORDERED: PANTOPRAZOLE (EC) 40 MG TAB PO SCH (06:00)
[2016-08-10 06:18] LABS: CALCIUM 8.4 mg/dl (8.4-10.2); CREATININE 0.56 mg/dl (0.44-1.00); POTASSIUM 4.9 mmol/L (3.5-5.1)
[2016-08-10 08:27] VITALS: BP 117/56; RESP 19
[2016-08-10] MEDS: DOCUSATE SODIUM 100 MG CAP PO SCH (09:20)
[2016-08-10] MEDS: DONEPEZIL 5 MG TAB PO SCH (09:20)
[2016-08-10] MEDS: CALCIUM CARBONATE 1.25 GM TAB PO SCH (09:20)
[2016-08-10] MEDS: MOMETASONE 0.24 GM INHALER INH SCH (09:21)
[2016-08-10] MEDS: LISINOPRIL 10 MG TAB PO SCH (09:21)
[2016-08-10] MEDS: POLYETHYLENE GLYCOL 17 GM PACKET PO SCH (09:21)
[2016-08-10] MEDS: ENOXAPARIN 40 MG/0.4 ML SYG SC SCH (09:21)
--- NOTE | 2016-08-10 17:39 | PDOCDIS ---
Discharge Instructions DIAGNOSIS Discharge Diagnosis: hip fracture; dementia CONDITION Patient Condition: Stable HOME CARE INSTRUCTIONS: Special Diet: LOW FAT ,LOW CHOLESTEROL ACTIVITY: Activity Restrictions: Slowly Increase Activity FOLLOW UP/APPOINTMENTS Appointments appt Dr Kelley -2wks- call his office to confirm weight bearing status appt PCP 1wk consider hospice referral. JONO ALMENDAREZ MD Aug 10, 2016 17:39
[2016-08-10] MEDS: HYDROCODONE/APAP (5/325) TAB PO PRN (18:33)
[2016-08-10] MEDS: AL HYDROX/MG HYDROX/SIMETH 30 ML CUP PO PRN (18:57)
[2016-08-10 20:00] VITALS: BP 133/58; PULSE 94; RESP 18
--- NOTE | 2016-08-10 21:53 | DS ---
DATE OF ADMISSION: 07/28/2016 DATE OF DISCHARGE: 08/10/2016 PRIMARY CARE PHYSICIAN: Unknown. DINING SERVICE INSPECTOR: Dr. Burke Parra DIAGNOSIS ON ADMISSION: Left hip intertrochanteric fracture. DIAGNOSES ON DISCHARGE: 1. Left hip intertrochanteric fracture. 2. Dementia. 3. Hypertension. 4. Vitamin D deficiency. 5. Chronic obstructive pulmonary disease. HOSPITAL COURSE: This is an 81-year-old female who was admitted with hip fracture, underwent ORIF u nder the care of Dr. Burke Parra. Please see operative report for complete details. Postoperative ho spital course was uncomplicated, patient tolerating diet, pain is controlled, and she is stable and fit for discharge. She is going to [facility] for PT, OT. PROCEDURES: ORIF, left hip. A 2-D echo read as EF of 70%, impaired relaxation, stage I diastolic d ysfunction. IMAGING STUDIES: Postoperative images show satisfactory alignment. Chest x-ray: Clear lungs. LABORATORY DATA: Sodium 131, potassium 4.9, chloride 99, bicarbonate 26, BUN of 13, creatinine 0.5, glucose of 89, calcium of 8.3. TSH 5.4. Random cortisol 15. INR 0.9. White cell count of 17, he moglobin and hematocrit of 9 and 26, platelets of 172. These are labs from 07/31. VITAL SIGNS: Stable. No fever except for 99.5, low grade. DISCHARGE PLAN: The patient is discharged to [facility]. DIET: Low salt. ACTIVITY: Nonweightbearing. ALLERGIES: NONE. BARRIERS TO DISCHARGE: None. PENDING TESTS: None. FUNCTIONAL STATUS: The patient awake, alert, demented. Family aware of the care plan and options. REASON FOR ADMISSION: Hip fracture. CODE STATUS: FULL. CONDITION: Stable. MEDICATIONS: 1. Aricept 5. 2. Lisinopril 10. 3. Asmanex 1 puff b.i.d. 4. MiraLax 1 packet daily. 5. Protonix 40 daily, 1 week. 6. [place] 5 one every 3 as needed. 7. Vitamin D 50,000 units every Wednesday. 8. Lovenox 40 subcutaneous daily 3 to 4 weeks. 9. Colace 100 b.i.d. 10. ____1.25 grams b.i.d. 11. Tylenol as needed. Dictated By: JONO ALMENDAREZ MD AC/NTS Conf#: [id number] DID#: [id number] CC: BURKE PARRA MD;*EndCC*
== END 2016-08-10 20:45 | DRG 481 ==
LOC: E/R 12:48 → MS1 15:00
PROVIDERS: ADMIT Hospitalist; ATTEND Hospitalist
PROC: 0QS706Z Reposition Left Upper Femur with Intramedullary Internal Fixation Device, Open Approach (ICD-10-PCS; principal; 2016-07-31 14:30)
DX: S72.142A Displaced intertrochanteric fracture of left femur, initial encounter for closed fracture (principal); E87.1 Hypo-osmolality and hyponatremia; G30.9 Alzheimer's disease, unspecified; I11.0 Hypertensive heart disease with heart failure; I50.32 Chronic diastolic (congestive) heart failure; F02.80 Dementia in other diseases classified elsewhere, unspecified severity, without behavioral disturbance, psychotic disturbance, mood disturbance, and anxiety; J44.9 Chronic obstructive pulmonary disease, unspecified; D50.9 Iron deficiency anemia, unspecified; K59.00 Constipation, unspecified; M81.0 Age-related osteoporosis without current pathological fracture; R10.13 Epigastric pain; E55.9 Vitamin D deficiency, unspecified; W10.9XXA Fall (on) (from) unspecified stairs and steps, initial encounter; Y92.009 Unspecified place in unspecified non-institutional (private) residence as the place of occurrence of the external cause
CPT/HCPCS: 36415; 71010; 73500; 73510; 73530; 80048; 82306; 82533; 82550; 82553; 83930; 83935; 84443; 84484; 85025; 85610; 85730; 93005; 93306; 96374; 96375; 97110; 97162; 97530; C1713; C9113; J0131; J0690; J1100; J1170; J1644; J1650; J2270; J2370; J2405; J2710; J3010; J7030; J7120